=== PATIENT | female | born 1970 | race Caucasian/White ===

== ENCOUNTER 2016-11-26 12:00 | Emergency (ER) | payer OTHER ==
[~2016-11-26] VITALS: Ht 172.7 cm; Wt 67.6 kg
[~2016-11-26 12:00] MED LIST: DOCU-94 PO; ONDA8TAB6 PO; OXYC1TAB3 PO; OXYC20TA50 PO; PROC1TAB5 PO; ZNTT/150 PO
[2016-11-26 12:02] VITALS: TEMP 36.8; Ht 172.7 cm; Wt 67.6 kg
[2016-11-26] MEDS ORDERED: GABA-1218 PO (12:14)
[2016-11-26] MEDS ORDERED: OXYSR/10 PO (12:14)
[2016-11-26] MEDS ORDERED: RXC/5 PO (12:14)
[2016-11-26] MEDS ORDERED: KETOROLAC TROMETHAMINE 30 MG/ML VIAL IV STA (12:44)
[2016-11-26] MEDS ORDERED: HYDROmorphone INJ 1 MG/ML SYR IV STA ×2 (12:44→16:20)
[2016-11-26] MEDS ORDERED: METOCLOPRAMIDE HCL INJ 5 MG/ML 2 ML VIAL IV STA (12:44)
[2016-11-26] MEDS ORDERED: OPTIRAY 320 IV PRN (12:45)
[2016-11-26 12:51] LABS: HEMATOCRIT 30.9 % (37-47); MEAN CELL VOLUME 97.2 fL (80-100); MEAN CORPUSCULAR HEMOGLOBIN 32.1 pg (25-34); MEAN PLATELET VOLUME 9.7 fL (7.4-10.4); PLATELET COUNT 175 K/uL (130-400); RED BLOOD COUNT 3.18 M/uL (4.2-5.4); WHITE BLOOD COUNT 5.21 K/uL (4.8-10.8)
[2016-11-26 12:59] LABS: URINE APPEARANCE CLEAR (CLEAR); URINE COLOR DK YELLOW; URINE EPITHELIAL CELL AUTO >30 /lpf (0-5); URINE NITRITE NEG (NEG); UROBILINOGEN NEG (NEG)
[2016-11-26 13:01] LABS: MANUAL MICROSCOPIC REQUIRED? NO; REVIEW REQ? NO; URINE BILIRUBIN 1+ (NEG)
[2016-11-26 13:03] LABS: BUN/CREATININE RATIO 8.3 (10-20); CALCIUM 8.7 mg/dl (8.5-10.1); CREATININE 0.56 mg/dl (0.60-1.20); POTASSIUM 3.9 mmol/L (3.5-5.1)
--- NOTE | 2016-11-26 13:12 | EMERGENCY ROOM VISIT NOTE ---
History Report prepared by [place]: Fredy Culver Under the Supervision of: Dr. Anjel Roca M.D. First contact with patient: 12:37 Chief Complaint: ABDOMINAL PAIN Stated Complaint: ABDOMINAL PAIN Nursing Triage Summary: Pt reports abdominal pain rated 5/10. Sent by Dr. Shelby, concerned about bowel obstruction. Pt reports her last BM was this AM, administered an enema Friday night (was successful), but is still feeling pressure and pain in abdomen. History of Present Illness The patient is a 46 year old female who presents to the Emergency Room with complaints of constant abdominal pain that began the other day. She currently rates her discomfort as a 5/10 in severity. The patient states that she has a history of stage IV metastatic colon cancer that has metastasized to her liver, lungs, and bones. The patient states that she receives chemotherapy every other Friday. She reports that she typically has abdominal pain but never this severe. She notes that she has vomited on Friday and Friday and she is currently constipated. Source of History: patient Onset: The other day Position: abdomen Timing: constant Associated Symptoms: + vomiting Note: Associated symptoms: constipation Review of Systems See HPI for pertinent positives & negatives. A total of 10 systems reviewed and were otherwise negative. Past Medical & Surgical Medical Problems: (1) Colorectal cancer (2) GERD (gastroesophageal reflux disease) (3) Rectal bleed Family History Cancer Hypertension Social History Smoking Status: Never Smoker Alcohol Use: none Drug Use: none Marital Status: Housing Status: lives with family, lives with significant other Occupation Status: employed Current/Historical Medications Scheduled Gabapentin (Neurontin), 300 MG PO BID Oxycodone HCl (Oxycontin), 10 MG PO QPM Oxycodone HCl (Oxycodone HCl), 5 MG PO TID Ranitidine (Zantac), 150 MG PO BID Scheduled PRN Oxycodone Immediate Rel Tab (Roxicodone Ir), 1-2 TAB PO Q4H PRN for Severe Pain Allergies Coded Allergies: No Known Allergies (Unverified , 11/26/16) Physical Exam Vital Signs Date Time Temp Pulse Resp B/P Pulse Ox O2 Delivery O2 Flow Rate FiO2 11/26/16 16:46 83 16 115/81 96 11/26/16 16:12 76 16 121/87 97 Room Air 11/26/16 14:31 85 16 107/79 96 Room Air 11/26/16 12:58 90 18 117/81 97 Room Air 11/26/16 12:02 36.8 113 20 114/80 94 Room Air Physical Exam GENERAL: Patient is a pale-appearing cachectic female HEAD: Normocephalic atraumatic EYES: Ocular movements intact pupils equal and react to light OROPHARYNX mucous membranes are moist no exudates present no erythema or edema present NECK: Supple no nuchal rigidity CHEST: Good equal expansion LUNGS: Clear and equal to auscultation CARDIAC: Normal S1 and S2 ABDOMEN: Soft tender epigastric area no guarding BACK: No CVA tenderness EXTREMITIES: No pain upon palpation normal muscle strength in all groups no clubbing cyanosis or edema NEURO: Patient is following commands is answering questions appropriately. Alert and oriented x3 Cranial Nerves 2-12 grossly intact Medical Decision & Procedures ER Provider Diagnostic Interpretation: Radiology results as stated below per my review and radiologist interpretation: ABDOMEN AND PELVIS CT WITH IV AND ORAL CONTRAST CT DOSE: 783.63 mGy.cm HISTORY: Pain. Metastatic disease. Pt concern for REILLY TECHNIQUE: Multiaxial CT images of the abdomen and pelvis were performed following the use of intravenous and oral contrast. COMPARISON STUDY: 06/21/2016 FINDINGS: Mildly progressive basilar pulmonary nodularity. Multiple diffuse miliary type nodules are now present. Findings of diffuse hepatic mild nonobstructive small bowel ileus. Metastatic disease this is stable. Mildly progressive abdominal and pelvic ascites. Gallbladder is negative for distention. Kidneys negative for hydronephrosis. Spleen is uniform. Potential developing carcinomatosis. Bladder is midline. Mildly progressive periaortic adenopathy. No evidence for progressive bony metastatic change. IMPRESSION: 1. Progressive pulmonary metastatic nodularity. Graft 2. Stable diffuse hepatic metastatic disease. 3. Potential developing carcinomatosis with mildly progressive perinephric and retroperitoneal adenopathy. 4. Mildly progressive abdominal and pelvic ascites. 5. No evidence for bowel obstruction at the current time. Electronically signed by: Bry Aviles M.D. 11/26/2016 3:55 PM Dictated Date/Time: 11/26/2016 3:46 PM Laboratory Results 11/26/16 12:25 Red Blood Count 3.18, Mean Corpuscular Volume 97.2, Mean Corpuscular Hemoglobin 32.1, Mean Corpuscular Hemoglobin Concent 33.0, Mean Platelet Volume 9.7 11/26/16 12:25 Test 11/26/16 12:25 White Blood Count 5.21 K/uL (4.8-10.8) Red Blood Count 3.18 M/uL (4.2-5.4) Hemoglobin 10.2 g/dL (12.0-16.0) Hematocrit 30.9 % (37-47) Mean Corpuscular Volume 97.2 fL (80-100) Mean Corpuscular Hemoglobin 32.1 pg (25-34) Mean Corpuscular Hemoglobin Concent 33.0 g/dl (32-36) Platelet Count 175 K/uL (130-400) Mean Platelet Volume 9.7 fL (7.4-10.4) RDW Standard Deviation 50.3 fL (36.4-46.3) RDW Coefficient of Variation 14.2 % (11.5-14.5) Neutrophils % (Manual) 76.6 % Lymphocytes % (Manual) 9.0 % Monocytes % (Manual) 9.9 % Eosinophils % (Manual) 1.8 % Basophils % (Manual) 1.8 % Myelocytes % 0.9 % Neutrophils # (Manual) 3.99 K/uL (1.4-6.5) Total Absolute Neutrophils 3.99 K/uL (1.4-6.5) Lymphocytes # (Manual) 0.47 K/uL (1.2-3.4) Total Absolute Lymphocytes 0.47 K/uL (1.2-3.4) Monocytes # (Manual) 0.52 K/uL (0.11-0.59) Eosinophils # (Manual) 0.09 K/uL (0-0.5) Basophils # (Manual) 0.09 K/uL (0-0.2) Myelocytes # 0.05 K/uL (0-0) Red Blood Cell Morphology Unremarkable Prothrombin Time 13.8 SECONDS (9.0-12.0) Prothromb Time International Ratio 1.3 (0.9-1.1) Urine Color DK YELLOW Urine Appearance CLEAR (CLEAR) Urine pH 7.0 (4.5-7.5) Urine Specific [place] 1.010 (1.000-1.030) Urine Protein NEG (NEG) Urine Glucose (UA) NEG (NEG) Urine Ketones NEG (NEG) Urine Occult Blood NEG (NEG) Urine Nitrite NEG (NEG) Urine Bilirubin 1+ (NEG) Urine Urobilinogen NEG (NEG) Urine Leukocyte Esterase TRACE (NEG) Urine WBC (Auto) 1-5 /hpf (0-5) Urine RBC (Auto) 0-4 /hpf (0-4) Urine Hyaline Casts (Auto) 1-5 /lpf (0-5) Urine Epithelial Cells (Auto) >30 /lpf (0-5) Urine Bacteria (Auto) 1+ (NEG) Anion Gap 9.0 mmol/L (3-11) Est Creatinine Clear Calc Drug Dose 126.6 ml/min Estimated GFR () 129.6 Estimated GFR (Non- 111.8 BUN/Creatinine Ratio 8.3 (10-20) Calcium Level 8.7 mg/dl (8.5-10.1) Total Bilirubin 1.7 mg/dl (0.2-1) Direct Bilirubin 1.4 mg/dl (0-0.2) Aspartate Amino Transf (AST/SGOT) 129 U/L (15-37) Alanine Aminotransferase (ALT/SGPT) 40 U/L (12-78) Alkaline Phosphatase 511 U/L (45-117) Total Protein 5.7 gm/dl (6.4-8.2) Albumin 2.2 gm/dl (3.4-5.0) Lipase 111 U/L (73-393) Labs reviewed by ED physician. Medications Administered Medications (Trade) Dose Ordered Sig/Mary Route Start Time Stop Time Status Last Admin Dose Admin Hydromorphone HCl (Dilaudid Inj) 1 mg NOW STAT IV 11/26/16 12:44 11/26/16 12:46 DC 11/26/16 12:51 1 MG Ketorolac Tromethamine (Toradol Inj) 30 mg NOW STAT IV 11/26/16 12:44 11/26/16 12:46 DC 11/26/16 12:50 30 MG Metoclopramide HCl (Reglan Inj) 10 mg NOW STAT IV 11/26/16 12:44 11/26/16 12:46 DC 11/26/16 12:50 10 MG Hydromorphone HCl (Dilaudid Inj) 1 mg NOW STAT IV 11/26/16 16:20 11/26/16 16:21 DC 11/26/16 16:40 1 MG Heparin Sodium (Porcine) (Heparin 100 Unit/ml 5ml Flush) 5 ml STK-MED ONCE .ROUTE 11/26/16 16:37 11/26/16 16:38 DC 11/26/16 16:41 5 ML ED Course 1238: Past medical records reviewed. The patient was evaluated in room C01. A complete history and physical examination was performed. 1244: Reglan Inj 10 mg IV, Toradol Inj 30 mg, Dilaudid Inj IV 1405: I updated the patient of her exam findings and she is resting easily. 1445: I reevaluated the patient and she is doing better. 1620: Dilaudid Inj 1 mg IV 1637: Heparin Sodium (Porcine) 5 ml .ROUTE 1648: I reevaluated the patient and she is resting comfortably. I discussed the exam findings with her and I discussed the treatment plan. She verbalizes understand of the plan and is ready to go home. Medical Decision This is a 46-year-old female who presents emergency department complaining of epigastric abdominal pain. The patient was sent in by her oncologist who is requesting a CAT scan to rule out obstruction. An IV was established, the patient given normal saline bolus, Dilaudid, Toradol, Reglan repeat examination revealed improvement the patient's symptoms. Serial abdominal examinations were performed on the patient in the emergency department and at no time did the patient exhibit a surgical abdomen. I did discuss the CAT scan results with the patient's oncologist. I gave the patient the option of being admitted however she wishes to go home. I believe this is reasonable however I recommended a clear liquid diet for the next 48 hours I recommended she return if she develops severe abdominal pain or fevers. Patient and were in agreement with the treatment plan. Consults Time Called: 1601 Consulting Physician: Dr. Shelby, Oncology Returned Call: 1606 I discussed the patients CT scan with Dr Shelby, Oncology. He states that the patient may be discharged or evaluated for further treatment, depending on how she feels. Impression Primary Impression: Epigastric abdominal pain Scribe Attestation The scribe's documentation has been prepared under my direction and personally reviewed by me in its entirety. I confirm that the note above accurately reflects all work, treatment, procedures, and medical decision making performed by me. Departure Information Dispostion Home / Self-Care Prescriptions Oxycodone Immediate Rel Tab (ROXICODONE IR) 5 Mg Tab 1-2 TAB PO Q4H Y for Severe Pain, #24 TAB Prov: Anjel Roca MD 11/26/16 Referrals Lynette Nicole C.R.NJongPJong (PCP) Forms Call Back Authorization, HOME CARE DOCUMENTATION FORM, IMPORTANT VISIT INFORMATION, School Instructions, Work Instructions Patient Instructions ED Abd Pain Unkn Cause Fem, ED Diet Clear Liquid, [facility] Additional Instructions Clear liquid diet next 48 hours You received narcotic or benzodiazepene medication while in the emergency room today. Do not drive, operate heavy machinery, or drink alcohol under the influence of this medication. Take Oxy 1-2 q4 for breakthrough pain You have been examined and treated today on an emergency basis only. This is not a substitute for, or an effort to provide, complete comprehensive medical care. It is impossible to recognize and treat all injuries or illnesses in a single emergency department visit. It is therefore important that you follow up closely with your PCP. Call as soon as possible for an appointment. Thank you for your time and consideration. I look forward to speaking with you again soon. Please don't hesitate to call us if you have any questions.
[2016-11-26 13:20] LABS: BASO ABS # 0.09 K/uL (0-0.2); BASOPHIL % 1.8 %; COMPLETE YES; EOSINOPHIL % 1.8 %; LYMPH ABS # 0.47 K/uL (1.2-3.4); MYELOCYTE % 0.9 %; NEUTROPHILS % 76.6 %
[2016-11-26 13:30] LABS: INR 1.3 (0.9-1.1); PROTHROMBIN TIME (PATIENT) 13.8 SECONDS (9.0-12.0)
--- NOTE | 2016-11-26 15:56 | DIAGNOSTIC IMAGING REPORT ---
ABDOMEN AND PELVIS CT WITH IV AND ORAL CONTRAST CT DOSE: 783.63 mGy.cm HISTORY: Pain. Metastatic disease. Pt concern for REILLY TECHNIQUE: Multiaxial CT images of the abdomen and pelvis were performed following the use of intravenous and oral contrast. COMPARISON STUDY: 06/21/2016 FINDINGS: Mildly progressive basilar pulmonary nodularity. Multiple diffuse miliary type nodules are now present. Findings of diffuse hepatic mild nonobstructive small bowel ileus. Metastatic disease this is stable. Mildly progressive abdominal and pelvic ascites. Gallbladder is negative for distention. Kidneys negative for hydronephrosis. Spleen is uniform. Potential developing carcinomatosis. Bladder is midline. Mildly progressive periaortic adenopathy. No evidence for progressive bony metastatic change. IMPRESSION: 1. Progressive pulmonary metastatic nodularity. Graft 2. Stable diffuse hepatic metastatic disease. 3. Potential developing carcinomatosis with mildly progressive perinephric and retroperitoneal adenopathy. 4. Mildly progressive abdominal and pelvic ascites. 5. No evidence for bowel obstruction at the current time. Electronically signed by: Bry Aviles M.D. 11/26/2016 3:55 PM Dictated Date/Time: 11/26/2016 3:46 PM
[2016-11-26] MEDS ORDERED: OXYC1TAB3 PO (16:21)
[2016-11-26 16:46] VITALS: BP 115/81; PULSE 83; O2SAT 96
[2016-12-18] MEDS ORDERED: POLY335025 PO (13:26)
[2016-12-18] MEDS ORDERED: DOCU-94 PO (13:26)
[2017-01-11] MEDS ORDERED: SCOP1.5D2 TD (23:16)
== END 2016-11-26 16:48 | disposition home or self-care (01) ==
LOC: C.EDB 12:01 → C.EDC 16:48
DX: R10.13 Epigastric pain (principal); C18.9 Malignant neoplasm of colon, unspecified; C78.7 Secondary malignant neoplasm of liver and intrahepatic bile duct; C78.00 Secondary malignant neoplasm of unspecified lung; C79.51 Secondary malignant neoplasm of bone; R11.10 Vomiting, unspecified; K59.00 Constipation, unspecified

== ENCOUNTER → 2016-12-18 | Outpatient (CLI) | payer OTHER ==
[~2016-12-18] MED LIST changes: +GABA-1218 PO; +ONDA8TAB13 SL; -ONDA8TAB6 PO; +OXYC1CAP5 PO; -OXYC20TA50 PO; +OXYSR/10 PO; +PANT40TA PO; +POLY335025 PO; +RXC/5 PO; +SCOP1.5D2 TD; +VTMD1000 PO
[2016-12-18 13:08] VITALS: BP 114/84; PULSE 101; TEMP 36.8; O2SAT 92
--- NOTE | 2016-12-18 17:39 | Radiation Oncology Follow-Up ---
Radiation Oncology Follow-Up Date of Visit December 18, 2016. (Robyn Sosa PA-C) Reason For Visit One-month follow-up (Robyn Sosa PA-C) Radiation Completion Date finished 05-24-16 left femur and to right femur 10-18-2016 (Robyn Sosa PA-C) Diagnosis (1) Colorectal cancer Status: Chronic Onset Date: 04/23/2016 Location: metastasis to the right proximal femur Stage: IV Permanent Comment: STAGING: Colorectal, adeconcarcinoma, metastatic disease to liver and bone TREATMENT: 1. Systemic chemotherapy underneath the supervision of Dr. Emiliano Shelby. 2. Status post completion of radiation therapy 05/24/2016 received 3000 cGy to the left femur 3. Continued systemic chemotherapy Last Edited By: Robyn Sosa on Sep 17:37 (Robyn Sosa PA-C) History of Present Illness Ms. Tatum is a 46-year-old female who recently presented to her primary care physician with blood in her stool. Initially was thought to be hemorrhoids in her bleeding resolved. Subsequently, 1 month ago, the patient then presented with epigastric pain and then her primary care physician ordered a abdominal ultrasound on 04/15/2016 which revealed: IMPRESSION 1. Findings consistent with diffuse hepatic metastatic disease. Consideration could be made to an abdominal /pelvic CT scan for further assessment and for potential identification of the primary tumor. 2. A presumed cholesterol polyp is identified in the gallbladder. She subsequently had a CT of the abdomen and pelvis on 04/17/2016 which revealed innumerable hypodense liver lesions suspicious for metastasis. She had a bilateral mammograms completed on 04/19/2016 which revealed no evidence of breast disease. She had a CT thorax completed on 04/19/2016 which showed multiple bilateral lower lobe pulmonary nodules consistent with metastasis and no primary malignancy is identified. She did have a CT-guided needle biopsy completed on 04/23/2016 which showed metastatic adenocarcinoma compatible with colon adenocarcinoma. She then had a PET/CT scan completed on 04/26/2016: IMPRESSION 1. Metabolically active focal thickening of the descending colon, highly suspicious for malignancy. Correlation with colonoscopy is recommended. 2. Metabolically active diffuse hepatic metastatic disease. 3. Metabolically active osseous metastatic disease involving the left scapula and proximal femurs. 4. Bilateral lower lobe pulmonary nodules without significant metabolic activity. Findings remain suspicious for metastatic disease. 5. Hyperdensity in the presacral/pericolonic region without increased metabolic activity, may represent blood product. She was subsequently referred to Dr. Emiliano Shelby for medical oncology. Dr. Shelby recommended systemic chemotherapy and has started the patient on oxaliplatin. We are seeing the patient in consultation to discuss the role of prophylactic radiation therapy to the left femur to prevent a pathologic fracture. Status post completion of radiation therapy 05/24/2016 received 3000 cGy. She completed radiation to the left femur for stabilization. Treatment was given to prevent pending fracture. She tolerated the treatment well. She unfortunately has now developed pain in her right femur. Pain does radiate towards the hip and down towards her knee. The pain level currently is 1 but increases with movement. She takes ibuprofen for pain. She has continued on chemotherapy. She receives 5-FU every 2 weeks. She is also receiving Xgeva. She does have a side effect of neuropathy of the fingers and toes. She had a PET scan 09/11/2016. This showed new left scapular metastatic lesion and increasing uptake in the right proximal femur lesion consistent with disease progression. Postradiation changes in the left proximal femur. Innumerable hepatic metastasis, some of which appear to have central necrosis. Lesions appear larger and more complete fluid on CT increased uptake within the primary lesion in the descending colon. Due to the pain in the finding on the PET scan she also had plain film x-rays of the femur. Those were performed on 2016. There was no radiologic correlate for the FDG uptake on the comparison PET/CT scans. She was referred to our office discuss radiation therapy. She completed radiation therapy to the right femur on 10/18/2016. She received 2500 cGy. (Robyn Sosa PA-C) Interim History She did develop an area of skin discoloration on the posterior upper right thigh. There was no breakdown of the skin. There is little difficulty currently with the hip. Her main source of discomfort now is in her abdomen. She has developed ascites. She had a paracentesis 12/11/2016. 3 L of fluid were removed. This revealed red blood cells, lymphocytes, and a few degenerate mesothelial cells. No tumor cells were seen specimen [id number]. The pain continues in her abdomen and is a 7.5. She has multiple pain medications available to her. She has OxyContin 10 mg twice a day. She has oxycodone 5 mg which she is taking 3 times a day. She can also take this twice daily. She has Roxicodone been which she can take 1 or 2 every 4 hours as needed. There was discussion over ankle swelling. We discussed this may be related to decreased protein. She has been eating and drinking little area she was encouraged to use supplements. She has been receiving chemotherapy every 2 weeks. Her last dose of treatment was not given last week due to elevated liver function studies. She has a recheck appointment for laboratory studies this week to see if she qualifies. (Robyn Sosa PA-C) Allergies Coded Allergies: No Known Allergies (Unverified , 12/11/16) Home Medications Scheduled Docusate Sodium (Colace), 1 CAP PO BID Gabapentin (Neurontin), 300 MG PO BID Oxycodone HCl (Oxycontin), 10 MG PO BID Ranitidine (Zantac), 150 MG PO BID Scheduled PRN Oxycodone HCl (Oxycodone HCl), 5 MG PO TID PRN for Pain Oxycodone Immediate Rel Tab (Roxicodone Ir), 1-2 TAB PO Q4H PRN for Severe Pain Polyethylene Glycol 3350 (Miralax), 1 TSP PO QD PRN for Constipation Review of Systems Gastrointestinal: Symptoms: Nausea, Vomiting, Constipation, Abdominal Distention Oral: Symptoms: Scant Saliva/Dry Mouth Respiratory: Symptoms: Dry Cough, SOB With Exertion Urinary: Comments: "hard to pee, due to rectocele " Skin: Other Skin Symptoms: "right leg has a bruise on it " (Robyn Sosa PA-C) Physical Exam Vital Signs Date Time Temp Pulse Resp B/P Pulse Ox O2 Delivery O2 Flow Rate FiO2 12/18/16 13:08 36.8 101 20 114/84 92 Pain: Pain Onset: 1 week Pain Duration: comes and goes Side: Right Patient Pain Scale: 0 - 10 Initial Pain Intensity: 7.5 Pain Description: Sharp Additional Comments: gets worse at times General Appearance: + thin, + pertinent finding Eyes: normal inspection, EOMI ENT: hearing grossly normal Respiratory/Chest: lungs clear, no respiratory distress, no accessory muscle use Cardiovascular: regular rate, rhythm, no gallop, no murmur Abdomen: + distended, + pertinent finding (firm and tender in the right upper quadrant) Extremities: + pertinent finding (+1 ankle edema, she has an area of hyperpigmentation of the right posterior upper thigh. There is no wet or dry desquamation.) Neurologic/Psychiatric: no motor/sensory deficits, alert, normal mood/affect Skin: warm/dry (Robyn Sosa PA-C) Laboratory Studies Test 11/26/16 12:25 12/11/16 00:00 White Blood Count 5.21 K/uL (4.8-10.8) Red Blood Count 3.18 M/uL (4.2-5.4) Hemoglobin 10.2 g/dL (12.0-16.0) Hematocrit 30.9 % (37-47) Mean Corpuscular Volume 97.2 fL (80-100) Mean Corpuscular Hemoglobin 32.1 pg (25-34) Mean Corpuscular Hemoglobin Concent 33.0 g/dl (32-36) Platelet Count 175 K/uL (130-400) Mean Platelet Volume 9.7 fL (7.4-10.4) RDW Standard Deviation 50.3 fL (36.4-46.3) RDW Coefficient of Variation 14.2 % (11.5-14.5) Neutrophils % (Manual) 76.6 % Lymphocytes % (Manual) 9.0 % Monocytes % (Manual) 9.9 % Eosinophils % (Manual) 1.8 % Basophils % (Manual) 1.8 % Myelocytes % 0.9 % Neutrophils # (Manual) 3.99 K/uL (1.4-6.5) Total Absolute Neutrophils 3.99 K/uL (1.4-6.5) Lymphocytes # (Manual) 0.47 K/uL (1.2-3.4) Total Absolute Lymphocytes 0.47 K/uL (1.2-3.4) Monocytes # (Manual) 0.52 K/uL (0.11-0.59) Eosinophils # (Manual) 0.09 K/uL (0-0.5) Basophils # (Manual) 0.09 K/uL (0-0.2) Myelocytes # 0.05 K/uL (0-0) Red Blood Cell Morphology Unremarkable Prothrombin Time 13.8 SECONDS (9.0-12.0) Prothrombin Time INR 1.3 (0.9-1.1) Urine Color DK YELLOW Urine Appearance CLEAR (CLEAR) Urine pH 7.0 (4.5-7.5) Urine Specific [place] 1.010 (1.000-1.030) Urine Protein NEG (NEG) Urine Glucose (UA) NEG (NEG) Urine Ketones NEG (NEG) Urine Occult Blood NEG (NEG) Urine Nitrite NEG (NEG) Urine Bilirubin 1+ (NEG) Urine Urobilinogen NEG (NEG) Urine Leukocyte Esterase TRACE (NEG) Urine WBC (Auto) 1-5 /hpf (0-5) Urine RBC (Auto) 0-4 /hpf (0-4) Urine Hyaline Casts (Auto) 1-5 /lpf (0-5) Urine Epithelial Cells (Auto) >30 /lpf (0-5) Urine Bacteria (Auto) 1+ (NEG) Sodium Level 138 mmol/L (136-145) Potassium Level 3.9 mmol/L (3.5-5.1) Chloride Level 105 mmol/L (98-107) Carbon Dioxide Level 24 mmol/L (21-32) Anion Gap 9.0 mmol/L (3-11) Blood Urea Nitrogen 5 mg/dl (7-18) Creatinine 0.56 mg/dl (0.60-1.20) Est Creatinine Clear Calc Drug Dose 126.6 ml/min Estimated GFR () 129.6 Estimated GFR (Non- 111.8 BUN/Creatinine Ratio 8.3 (10-20) Random Glucose 106 mg/dl (70-99) Calcium Level 8.7 mg/dl (8.5-10.1) Total Bilirubin 1.7 mg/dl (0.2-1) Direct Bilirubin 1.4 mg/dl (0-0.2) Aspartate Amino Transferase (AST) 129 U/L (15-37) Alanine Aminotransferase (ALT) 40 U/L (12-78) Alkaline Phosphatase 511 U/L (45-117) Total Protein 5.7 gm/dl (6.4-8.2) Albumin 2.2 gm/dl (3.4-5.0) Lipase 111 U/L (73-393) Peritoneal Fluid Color YELLOW Peritoneal Fluid Appearance CLEAR Peritoneal Fluid WBC 26 /uL (0-300) Peritoneal Fluid RBC < 3000 /uL Peritoneal Fld Mononuclear WBCs (%) 57.9 % Peritoneal Fld Polynuclear WBCs (%) 42.1 % (Robyn Sosa PA-C) Assessment & Plan Plan: Patient is also seen and examined by Dr. Shelby. She is being followed closely by medical oncology. She has unfortunately now developed abdominal ascites. She may need to have paracentesis once again. She'll be seeing the physician and having laboratory studies this week. A follow-up appointment with our office was not given. She recall she has any questions or concerns. (Robyn Sosa PA-C) I agree with note created by Robyn Sosa PA-C. I reviewed the patient's chart and information with her. I have examined and evaluated the patient. I reviewed relevant clinical information and answered the patient's and/or family' s questions. (Veeral. Shelby MD) Total Time In Follow-Up I spent 15 minutes speaking to the patient performing the examination. I spent 15 minutes reviewing information in completing this note. (Robyn Sosa PA-C) I spent 15 minutes examining and counseling the patient. (Veeral. Shelby MD) Copy To Lynette Nicole,C.R.N.P.; Emiliano Shelby M.D.
== END | disposition home or self-care (01) ==
LOC: C.ONC 13:02
PROVIDERS: ATTEND Physician Assistant Medical
DX: Z08 Encounter for follow-up examination after completed treatment for malignant neoplasm (principal); Z92.3 Personal history of irradiation; Z85.038 Personal history of other malignant neoplasm of large intestine; Z85.048 Personal history of other malignant neoplasm of rectum, rectosigmoid junction, and anus

== ENCOUNTER 2017-01-11 16:41 | Inpatient (IN) | payer OTHER ==
[~2017-01-11] VITALS: Ht 172.7 cm; Wt 67.7 kg
[~2017-01-11 16:41] MED LIST changes: -GABA-1218 PO; +GABA300C19 PO; -ONDA8TAB13 SL; -OXYC1CAP5 PO; -PANT40TA PO; -PROC1TAB5 PO; -RXC/5 PO; -SCOP1.5D2 TD; -VTMD1000 PO
[2017-01-11] MEDS ORDERED: FENTANYL CITRATE INJ 50 MCG/1 ML 2 ML VIAL IV STA ×3 (17:06→23:21)
[2017-01-11 17:23] LABS: HEMATOCRIT 40.9 % (37-47); MEAN CELL VOLUME 91.3 fL (80-100); MEAN CORPUSCULAR HEMOGLOBIN 32.1 pg (25-34); MEAN CORPUSCULAR HGB CONC 35.2 g/dl (32-36); MEAN PLATELET VOLUME 9.7 fL (7.4-10.4); PLATELET COUNT 265 K/uL (130-400); RED BLOOD COUNT 4.48 M/uL (4.2-5.4); WHITE BLOOD COUNT 23.59 K/uL (4.8-10.8)
[2017-01-11 17:42] LABS: BUN/CREATININE RATIO 20.9 (10-20); CREATININE 1.2 mg/dl (0.60-1.20); POTASSIUM 4.9 mmol/L (3.5-5.1)
[2017-01-11 17:44] LABS: INR 1.3 (0.9-1.1)
[2017-01-11 17:47] LABS: BASO % 0.1 %; BASO ABS # 0.03 K/uL (0-0.2); COMPLETE YES; EOS % 0.4 %; IG% 1.5 %; LYMPH % 6.3 %; LYMPH ABS # 1.48 K/uL (1.2-3.4); MONO % 10.4 %; NEUT % 81.3 %
[2017-01-11] MEDS ORDERED: OXYC1CAP5 PO (17:56)
[2017-01-11 17:57] LABS: ALB/GLOB RATIO 0.3 (0.9-2)
--- NOTE | 2017-01-11 18:15 | DIAGNOSTIC IMAGING REPORT ---
ADDENDUM ADDENDUM: The pulmonary abnormality corresponds to diffuse/multifocal pulmonary metastatic disease. There is no radiographic evidence of superimposed airspace consolidation to indicate pneumonia. This was further characterized on the subsequently performed abdominal CT scan. Electronically signed by: Shin Roberts M.D. 01/11/2017 7:36 PM Dictated Date/Time: 01/11/2017 7:35 PM ORIGINAL REPORT SINGLE VIEW CHEST CLINICAL HISTORY: Leukocytosis. Weakness. FINDINGS: An AP, portable, upright chest radiograph is compared to study dated 09/06/2014 and correlated with chest CT dated 08/30/14. The examination is degraded by portable technique and patient rotation. A left subclavian central venous infusion port is new from 2014. The cardiomediastinal silhouette is unremarkable. There are low lung volumes. Patchy airspace consolidation and nodularity is seen in the mid to lower lungs. Trace pleural effusions are suspected. No pneumothorax is seen. The skeletal structures are osteopenic. The bony thorax is grossly intact. A paucity of bowel gas is noted in the upper abdomen. IMPRESSION: 1. Low lung volumes with bibasilar atelectasis. 2. There is patchy airspace consolidation and nodularity identified in the lower lobes. This likely represents an infectious/inflammatory pneumonitis given the reported history of leukocytosis. Superimposed congestive change is not excluded. Radiographic follow-up to resolution is recommended. 3. Suspect trace pleural effusions. Electronically signed by: Shin Roberts M.D. 01/11/2017 6:13 PM Dictated Date/Time: 01/11/2017 6:11 PM
[2017-01-11] MEDS ORDERED: SODIUM CHLORIDE 0.9% 1000ML 1,000 ML IV STA (18:17)
[2017-01-11] MEDS ORDERED: CEFEPIME IV 2,000 MG in DEXTROSE 5% 100ML 100 ML IV STA (18:44)
[2017-01-11] MEDS ORDERED: VANCOMYCIN INJ 1,000 MG in SODIUM CHLORIDE 0.9% 250ML 250 ML IV STA (18:44)
[2017-01-11] MEDS ORDERED: VANCOMYCIN 1GM/270ML NSS ONE (18:56)
--- NOTE | 2017-01-11 19:23 | DIAGNOSTIC IMAGING REPORT ---
CT SCAN OF THE ABDOMEN AND PELVIS WITHOUT IV CONTRAST CLINICAL HISTORY: Generalized abdominal pain. Leukocytosis. History of metastatic colon cancer. COMPARISON STUDY: Abdominal CT dated 11/26/2016. TECHNIQUE: CT scan of the abdomen and pelvis is performed from the lung bases to the proximal femora. Images are reviewed in the axial, sagittal, and coronal planes. IV contrast was not administered for this examination as per the referring clinician. Note that the examination was performed in significantly suboptimal fashion without oral and IV contrast. Automated dose control exposure was utilized. CT DOSE: 853.46 mGy.cm FINDINGS: Lung bases: The heart is normal in size and without pericardial effusion. The tip of a central venous infusion port catheter terminates in the right atrium. There are too numerous to count pulmonary nodules seen throughout both lung bases. This is consistent with diffuse pulmonary metastatic disease. The nodules have significantly increased in both size and number as compared to 11/26/2016. No airspace consolidation or pleural effusion is identified. Liver: The unenhanced liver is enlarged measuring 25 cm in length. There is nodularity of the hepatic surface contour. The liver is infiltrated by too numerous to count large low-attenuation lesions. This is consistent with multifocal hepatic metastatic disease. Although direct comparison is difficult due to differences in technique, this is likely progressed from 11/26/2016. There is no intrahepatic biliary ductal dilatation. Gallbladder: Hyperdense material within the gallbladder lumen may represent sludge. Spleen: The spleen is mildly enlarged measuring 13.5 cm in length. Pancreas: Grossly unremarkable but not well visualized. Adrenal glands: Unremarkable. Kidneys: The unenhanced kidneys demonstrate mild cortical atrophy and are without hydronephrosis. There are no renal calculi identified. There is no evidence of contour deforming renal mass lesion. Abdominal vasculature: The abdominal aorta is normal in course and caliber. Bowel: There is no bowel obstruction. There is mild colonic fecal retention. Wall thickening is suggested in the right colon. This is not well assessed. The appendix is normal as visualized. Peritoneum: There is a moderate to large volume of abdominopelvic ascites. No intraperitoneal free air is seen. Carcinomatosis is again suggested. Lymphadenopathy: Adenopathy seen previously is not well assessed.. Pelvic viscera: The bladder, uterus, and adnexa are normal as visualized. Skeletal structures: The skeletal structures are osteopenic. No lytic or blastic lesions are seen. Soft tissues: The patient is cachectic. Anasarca is noted. IMPRESSION: 1. Significant suboptimal examination without oral and IV contrast. 2. Findings are consistent with diffuse pulmonary metastatic disease. Pulmonary metastatic disease has significantly progressed as compared to 11/26/2016. No airspace consolidation is seen at the lung bases. 3. The liver is enlarged and infiltrated by too numerous to count metastatic lesions. This has also likely progressed from 11/26/2016. 4. The patient is cachectic and there is anasarca of the body wall. 5. Moderate to large volume of abdominopelvic ascites. Carcinomatosis is again suggested. 6. There is wall thickening questioned involving the right colon. This is not well evaluated. Correlate clinically for evidence of a diarrheal illness/colitis. This could also be related to portal colopathy. 7. Mild splenomegaly. 8. Additional findings as above. Electronically signed by: Shin Roberts M.D. 01/11/2017 7:22 PM Dictated Date/Time: 01/11/2017 7:11 PM
[2017-01-11] MEDS: LEVAQUIN 750MG / 150ML D5W IV ONE ×2 (19:43→20:14)
--- NOTE | 2017-01-11 21:04 | EMERGENCY ROOM VISIT NOTE ---
History Report prepared by [place]: Sagrario Javed Under the Supervision of: Dr. Michelle Nicole D.O. First contact with patient: 16:44 Stated Complaint: WEAKNESS/DEHYDRATION/ CANCER STAGE 4 History of Present Illness The patient is a 46 year old female who presents to the Emergency Room with complaints of persistent weakness starting earlier today. The patient has stage 4 cancer. She is not receiving chemo or radiation. She presents to the ED today because she has been feeling weak. She is having difficulty ambulating because of her weakness. Her believes that she might be dehydrated. She notes that she has not been eating or drinking regularly. Her appetite is worsening. She gets fluid drained from her abdomen weekly. She currently reports abdominal discomfort. They remove 4-5 liters of fluid each week after which the discomfort is relieved. She denies any fever, chills, or bleeding. Her bowel movements have been smaller than usual. She has recently started using a motion sickness patch because of nausea and vomiting during car trips. She denies any nausea or vomiting otherwise. She denies any other medication changes. Source of History: patient, spouse/significant other Onset: earlier today Position: other (global) Quality: other (weakness) Timing: other (persistent) Associated Symptoms: + abdominal pain, No fevers, No chills, No vomiting Note: Pt reports decreased appetite. Pt denies bleeding. Review of Systems See HPI for pertinent positives & negatives. A total of 10 systems reviewed and were otherwise negative. Past Medical & Surgical Medical Problems: (1) Ascites (2) Colorectal cancer (3) GERD (gastroesophageal reflux disease) (4) Rectal bleed Family History Cancer Hypertension Social History Smoking Status: Never Smoker Alcohol Use: none Drug Use: none Marital Status: Housing Status: lives with family, lives with significant other Current/Historical Medications Scheduled Cholecalciferol (Vitamin D3), 5,000 PO DAILY Docusate Sodium (Colace), 1 CAP PO BID Gabapentin (Neurontin), 300 MG PO TID Oxycodone HCl (Oxycontin), 10 MG PO BID Pantoprazole (Protonix), 40 MG PO DAILY Ranitidine (Zantac), 150 MG PO BID Scopolamine (Transderm-Scop), 1.5 MG TD Q72H Scheduled PRN Ondansetron Odt (Zofran Odt), 8 MG SL Q8WK PRN for Nausea or Vomiting Oxycodone Hcl (Oxycodone Hcl), 1 CAP PO QID PRN for Pain Polyethylene Glycol 3350 (Miralax), 1 TSP PO QD PRN for Constipation Prochlorperazine Maleate (Compazine), 10 MG PO Q6H PRN for Nausea Allergies Coded Allergies: No Known Allergies (Unverified , 01/11/17) Physical Exam Vital Signs Date Time Temp Pulse Resp B/P (MAP) Pulse Ox O2 Delivery O2 Flow Rate FiO2 01/11/17 22:00 102 24 105/74 93 Room Air 01/11/17 21:37 105 24 108/77 95 Room Air 01/11/17 20:59 102 01/11/17 20:14 104 20 109/71 95 01/11/17 19:31 101 16 106/73 98 Room Air 01/11/17 18:44 102 13 107/65 92 Room Air 01/11/17 17:48 112 18 101/82 94 Room Air 01/11/17 17:13 36.3 100 16 113/69 96 Room Air 01/11/17 17:04 101 Physical Exam GENERAL: pale, cachectic EYE EXAM: obvious scleral icterus, PERRLA, EOMI OROPHARYNX: no exudate, no erythema, lips, buccal mucosa, and tongue normal and mucous membranes are very dry NECK: supple, no nuchal rigidity, no adenopathy, non-tender LUNGS: Breath sounds clear bilaterally, no wheezes, rales, or rhonchi. HEART: tachycardic, but regular, no m/r/g ABDOMEN: abdomen is distended, no organomegaly, normo-active bowel sounds BACK: Back is symmetrical on inspection and there is no deformity, no midline tenderness, no CVA tenderness. SKIN: no rashes and no bruising UPPER EXTREMITIES: upper extremities are grossly normal. LOWER EXTREMITIES: No pitting edema. NEURO EXAM: Normal sensorium, cranial nerves II-XII grossly intact, normal speech, no gross weakness of arms, no gross weakness of legs. Medical Decision & Procedures ER Provider Diagnostic Interpretation: Xray results have been interpreted by the radiologist and me. Radiology results have been interpreted by the radiologist and reviewed by me. ADDENDUM ADDENDUM: The pulmonary abnormality corresponds to diffuse/multifocal pulmonary metastatic disease. There is no radiographic evidence of superimposed airspace consolidation to indicate pneumonia. This was further characterized on the subsequently performed abdominal CT scan. Electronically signed by: Shin Roberts M.D. 01/11/2017 7:36 PM Dictated Date/Time: 01/11/2017 7:35 PM ORIGINAL REPORT SINGLE VIEW CHEST CLINICAL HISTORY: Leukocytosis. Weakness. FINDINGS: An AP, portable, upright chest radiograph is compared to study dated 09/06/2014 and correlated with chest CT dated 08/30/14. The examination is degraded by portable technique and patient rotation. A left subclavian central venous infusion port is new from 2014. The cardiomediastinal silhouette is unremarkable. There are low lung volumes. Patchy airspace consolidation and nodularity is seen in the mid to lower lungs. Trace pleural effusions are suspected. No pneumothorax is seen. The skeletal structures are osteopenic. The bony thorax is grossly intact. A paucity of bowel gas is noted in the upper abdomen. IMPRESSION: 1. Low lung volumes with bibasilar atelectasis. 2. There is patchy airspace consolidation and nodularity identified in the lower lobes. This likely represents an infectious/inflammatory pneumonitis given the reported history of leukocytosis. Superimposed congestive change is not excluded. Radiographic follow-up to resolution is recommended. 3. Suspect trace pleural effusions. Electronically signed by: Shin Roberts M.D. 01/11/2017 6:13 PM Dictated Date/Time: 01/11/2017 6:[address] SCAN OF THE ABDOMEN AND PELVIS WITHOUT IV CONTRAST CLINICAL HISTORY: Generalized abdominal pain. Leukocytosis. History of metastatic colon cancer. COMPARISON STUDY: Abdominal CT dated 11/26/2016. TECHNIQUE: CT scan of the abdomen and pelvis is performed from the lung bases to the proximal femora. Images are reviewed in the axial, sagittal, and coronal planes. IV contrast was not administered for this examination as per the referring clinician. Note that the examination was performed in significantly suboptimal fashion without oral and IV contrast. Automated dose control exposure was utilized. CT DOSE: 853.46 mGy.cm FINDINGS: Lung bases: The heart is normal in size and without pericardial effusion. The tip of a central venous infusion port catheter terminates in the right atrium. There are too numerous to count pulmonary nodules seen throughout both lung bases. This is consistent with diffuse pulmonary metastatic disease. The nodules have significantly increased in both size and number as compared to 11/26/2016. No airspace consolidation or pleural effusion is identified. Liver: The unenhanced liver is enlarged measuring 25 cm in length. There is nodularity of the hepatic surface contour. The liver is infiltrated by too numerous to count large low-attenuation lesions. This is consistent with multifocal hepatic metastatic disease. Although direct comparison is difficult due to differences in technique, this is likely progressed from 11/26/2016. There is no intrahepatic biliary ductal dilatation. Gallbladder: Hyperdense material within the gallbladder lumen may represent sludge. Spleen: The spleen is mildly enlarged measuring 13.5 cm in length. Pancreas: Grossly unremarkable but not well visualized. Adrenal glands: Unremarkable. Kidneys: The unenhanced kidneys demonstrate mild cortical atrophy and are without hydronephrosis. There are no renal calculi identified. There is no evidence of contour deforming renal mass lesion. Abdominal vasculature: The abdominal aorta is normal in course and caliber. Bowel: There is no bowel obstruction. There is mild colonic fecal retention. Wall thickening is suggested in the right colon. This is not well assessed. The appendix is normal as visualized. Peritoneum: There is a moderate to large volume of abdominopelvic ascites. No intraperitoneal free air is seen. Carcinomatosis is again suggested. Lymphadenopathy: Adenopathy seen previously is not well assessed.. Pelvic viscera: The bladder, uterus, and adnexa are normal as visualized. Skeletal structures: The skeletal structures are osteopenic. No lytic or blastic lesions are seen. Soft tissues: The patient is cachectic. Anasarca is noted. IMPRESSION: 1. Significant suboptimal examination without oral and IV contrast. 2. Findings are consistent with diffuse pulmonary metastatic disease. Pulmonary metastatic disease has significantly progressed as compared to 11/26/2016. No airspace consolidation is seen at the lung bases. 3. The liver is enlarged and infiltrated by too numerous to count metastatic lesions. This has also likely progressed from 11/26/2016. 4. The patient is cachectic and there is anasarca of the body wall. 5. Moderate to large volume of abdominopelvic ascites. Carcinomatosis is again suggested. 6. There is wall thickening questioned involving the right colon. This is not well evaluated. Correlate clinically for evidence of a diarrheal illness/colitis. This could also be related to portal colopathy. 7. Mild splenomegaly. 8. Additional findings as above. Electronically signed by: Shin Roberts M.D. 01/11/2017 7:22 PM Dictated Date/Time: 01/11/2017 7:11 PM Laboratory Results Test 01/11/17 17:20 01/11/17 23:10 Ammonia 15.0 umol/L (11-32) Peritoneal Fluid Color YELLOW Peritoneal Fluid Appearance CLEAR Peritoneal Fluid WBC 138 /uL (0-300) Peritoneal Fluid RBC < 3000 /uL Peritoneal Fld Mononuclear WBCs (%) 47.6 % Peritoneal Fld Polynuclear WBCs (%) 52.4 % Peritoneal Fluid Total Protein 0.8 g/dl Peritoneal Fluid Albumin < 0.6 g/dl Peritoneal Fluid LDH 340 IU Peritoneal Fluid Glucose 90 mg/dl Laboratory results per my review. Medications Administered Medications (Trade) Dose Ordered Sig/Mary Route Start Time Stop Time Status Last Admin Dose Admin Fentanyl Citrate (Fentanyl Inj) 50 mcg NOW STAT IV 01/11/17 17:06 01/11/17 17:09 DC 01/11/17 17:27 50 MCG Sodium Chloride 1,000 ml @ 250 mls/hr Q4H STAT IV 01/11/17 18:17 01/11/17 22:16 DC 01/11/17 19:32 250 MLS/HR Vancomycin HCl 1000 mg/Sodium Chloride 270 ml @ 125 mls/hr NOW STAT IV 01/11/17 18:44 01/11/17 20:53 DC 01/11/17 19:33 125 MLS/HR Levofloxacin (Levaquin / D5W) 750 mg NOW ONCE IV 01/11/17 18:45 01/11/17 18:47 DC 01/11/17 20:14 750 MG Cefepime HCl 2000 mg/Dextrose 112.5 ml @ 200 mls/hr NOW STAT IV 01/11/17 18:44 01/11/17 19:17 DC 01/11/17 19:33 200 MLS/HR Fentanyl Citrate (Fentanyl Inj) 50 mcg NOW STAT IV 01/11/17 19:57 01/11/17 19:58 DC 01/11/17 20:21 50 MCG Tetracaine/ Epinephrine/ Lidocaine (L.e.t. Gel 4%/ 1:100/0.5%) 2 ea STK-MED ONCE .ROUTE 01/11/17 22:17 01/11/17 22:18 DC 01/11/17 22:29 2 EA Procedure Paracentesis performed Right Lower Quadrant 10 cc of fluid removed ED Course 164: The patient was evaluated in room A12B. A complete history and physical exam was performed. 1705: Fentanyl Citrate 50 mcg IV. 1816: NSS 1000 ml @ 250 mls/hr IV. 184: Cefepime HCl 2000 mg/Dextrose 112.5 ml @ 200 mls/hr IV, Vancomycin HCl 1000 mg/Sodium Chloride 270 ml @ 125 mls/hr IV. 184: Levofloxacin 750 mg IV. 1940: Upon reevaluation, the patient is still complaining of abdominal discomfort consistent with need for paracentesis. I discussed the findings and the treatment plan with the patient and her family. They express agreement and understanding. She will be evaluated for further management. 1956: Fentanyl Citrate 50 mcg IV. 2049: I discussed the patient's case with Dr. Gomez, [facility] hospitalist. The patient will be evaluated for further management. 2213: Paracentesis was performed according to the procedure note above. 2215: Lidocaine HCl 20 ml INFIL. 2217: LET Gel TOP. 2321: Fentanyl Citrate 50 mcg IV. Medical Decision Differential diagnosis: Etiologies such as metabolic, infection, hypo/hyperglycemia, electrolyte abnormalities, cardiac sources, intracerebral event, toxicologic, neurologic, as well as others were entertained. Medication Reconciliation: I attest that I have personally reviewed the patient' s current medication list. Blood pressure screening: Patient was found to have normal blood pressure on screening and does not require follow-up. Pt with end stage metastatic colorectal cancer with worsening liver mets no longer a candidate for treatment. Pt has been getting palliative paracentesis weekly and states they are considering doing them twice a week now also. Presentation of slowly increased abd pressure/discomfort consistent with timing of prior similar sx when pt due for paracentesis. No fevers or other focal symptoms. notes worsening appetite and poor po intake this week likely contribute to obvious clinical dehydration. Progression of disease noted on CT. Initial cxr read for pneumonia and recent hospitalizations led to cultures and coverage for possible HCAP pneumonia. Pt presentation not consistent with SBP, diagnostic tap performed at bedside after discussion with hospitalist. No other obvious source for leukocytosis. Pt and family made of aware of lab and imaging findings that suggest progression of disease and pt already enrolled in hospice. Pt given IVF here to help with hydration and careful pain medication. BP improved from initial hypotensive reading, doubt bacteremia/sepsis. More likely from volume depletion. Likely pt's symptoms all related to progression of her disease. Consults Time Called: 1949 Consulting Physician: Dr. Gomez [facility] hospitalist Returned Call: [phone] I reviewed the patient's case with him. He will evaluate the patient for further management. Impression Primary Impression: Dehydration Additional Impressions: Nausea Abdominal pain Leukocytosis Colorectal cancer, stage IV Scribe Attestation The scribe's documentation has been prepared under my direction and personally reviewed by me in its entirety. I confirm that the note above accurately reflects all work, treatment, procedures, and medical decision making performed by me. Departure Information Dispostion Being Evaluated By Hospitalist Referrals Parth Snow M.D. (PCP) Problem Qualifiers Additional Impressions: Abdominal pain Abdominal location: generalized Qualified Codes: R10.84 - Generalized abdominal pain Leukocytosis Leukocytosis type: unspecified Qualified Codes: D72.829 - Elevated white blood cell count, unspecified
[2017-01-11] MEDS ORDERED: LIDOCAINE/PRILOCAINE 2.5% EA CRM EXT ONE (22:15)
[2017-01-11] MEDS ORDERED: XYLOCAINE 1%/SOD BICARB 20 ML VIAL INFIL ONE (22:15)
[2017-01-11] MEDS ORDERED: LIDOCAINE/EPINEPH/TETRACAINE 1 EA SYR ONE (22:17)
[2017-01-11] MEDS ORDERED: PANT40TA PO (23:16)
[2017-01-11] MEDS ORDERED: VTMD1000 PO (23:16)
[2017-01-11] MEDS ORDERED: SCOP1DIS14 TD (23:16)
[2017-01-11] MEDS ORDERED: PROC1TAB5 PO (23:16)
[2017-01-11] MEDS ORDERED: ONDA8TAB13 SL (23:16)
[2017-01-11] MEDS ORDERED: ONDANSETRON 8MG OD TAB SL PRN (23:30)
[2017-01-12] VITALS (8 sets, daily range): BP systolic 93–110; BP diastolic 60–70; PULSE 90–104; TEMP 36.2–36.7; O2SAT 95–98; BMI 23.1
[2017-01-12] MEDS: OXYCODONE HCL IR 5 MG TAB (IMMEDIATE RELEASE) PO PRN ×4 (00:44→23:38)
[2017-01-12] MEDS ORDERED: SCOPOLAMINE 1.5 MG TDSY TD SCH (01:00)
--- NOTE | 2017-01-12 01:32 | History and Physical ---
History & Physical Date & Time of Service: Jan 12, 2017 at 00:59 Chief Complaint: Abdominal Pain, Ascites Primary Care Physician: Parth Snow M.D. 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 Pt said that she has been feeling very weak with low energy and abdominal pain associated with nausea. Pain is diffused, grade about 4/10, non radiated, alleviated after paracentesis. As per pt has been declined in the last few weeks. Pt is so weak, she is unable to walk and she cannot lift the spoon to feed herself. She has not been eating. said whenever she develops the abdominal discomfort is because her abdomen is distended. She has been getting weekly paracentesis for comfort care. Pt went on to get tap, she was sending home because there was not enough fluid to remove. Her last Paracentesis was last Friday where she got about btw 4 to 5 L of fluid removed that helped with the discomfort. Pt said that they are thinking to do the paracentesis twice a week. She is not getting any chemo or radiation. She denies any fever, chills, bleeding, vomiting, chest pain, palpitation and SOB. Past Medical/Surgical History Medical Problems: (1) Colorectal cancer Permanent Comment: STAGING: Colorectal, adeconcarcinoma, metastatic disease to liver and bone TREATMENT: 1. Systemic chemotherapy underneath the supervision of Dr. Emiliano Shelby. 2. Status post completion of radiation therapy 05/24/2016 received 3000 cGy to the left femur 3. Continued systemic chemotherapy Status: Chronic (2) GERD (gastroesophageal reflux disease) Status: Chronic Family History Cancer Hypertension Social History Smoking Status: Never Smoker Drug Use: none Marital Status: Housing status: lives with family Multi-Drug Resistant Organisms History of MDRO: No Allergies Coded Allergies: No Known Allergies (Unverified , 01/11/17) Home Medications Scheduled Cholecalciferol (Vitamin D3), 5,000 PO DAILY Docusate Sodium (Colace), 1 CAP PO BID Gabapentin (Neurontin), 300 MG PO TID Oxycodone HCl (Oxycontin), 10 MG PO BID Pantoprazole (Protonix), 40 MG PO DAILY Ranitidine (Zantac), 150 MG PO BID Scopolamine (Transderm-Scop), 1.5 MG TD Q72H Scheduled PRN Ondansetron Odt (Zofran Odt), 8 MG SL Q8WK PRN for Nausea or Vomiting Oxycodone Hcl (Oxycodone Hcl), 1 CAP PO QID PRN for Pain Polyethylene Glycol 3350 (Miralax), 1 TSP PO QD PRN for Constipation Prochlorperazine Maleate (Compazine), 10 MG PO Q6H PRN for Nausea Review of Systems Constitutional: + weight loss, + weakness, + fatigue, No fever, No chills Eyes: No worsening of vision, No discharge ENT: No hearing loss, No nasal symptoms, No sore throat Respiratory: No cough, No sputum, No wheezing Cardiovascular: No chest pain, No claudication, No palpitations Abdomen: + pain, + nausea Musculoskeletal: No calf pain Genitourinary - Female: No dysuria, No urinary frequency Neurologic: + weakness, + balance problems Psychiatric: + anxiety, No substance abuse Endocrine: + fatigue Hematologic / Lymphatic: No night sweats Integumentary: No rash, No itch Physical Exam Vital Signs Date Time Temp Pulse Resp B/P (MAP) Pulse Ox O2 Delivery O2 Flow Rate FiO2 01/11/17 23:42 96 24 101/71 96 01/11/17 23:11 102 22 112/78 95 Room Air 01/11/17 22:00 102 24 105/74 93 Room Air 01/11/17 21:37 105 24 108/77 95 Room Air 01/11/17 20:59 102 01/11/17 20:14 104 20 109/71 95 01/11/17 19:31 101 16 106/73 98 Room Air 01/11/17 18:44 102 13 107/65 92 Room Air 01/11/17 17:48 112 18 101/82 94 Room Air 01/11/17 17:13 36.3 100 16 113/69 96 Room Air 01/11/17 17:04 101 General Appearance: WD/WN, no apparent distress, + cachetic Head: normocephalic, atraumatic Eyes: normal inspection, PERRL, EOMI ENT: normal ENT inspection, hearing grossly normal Neck: supple, no JVD Respiratory/Chest: no respiratory distress, no accessory muscle use, + decreased breath sounds Cardiovascular: regular rate, rhythm, no JVD Abdomen/GI: normal bowel sounds, + tenderness, + distended Back: no CVA tenderness Extremities/Musculoskelatal: no calf tenderness Neurologic/Psych: alert, oriented x 3 Skin: warm/dry, no rash Diagnostics Laboratory Results Results Past 24 Hours Test 01/11/17 17:10 01/11/17 17:20 01/11/17 23:10 Range/Units White Blood Count 23.59 4.8-10.8 K/uL Red Blood Count 4.48 4.2-5.4 M/uL Hemoglobin 14.4 12.0-16.0 g/dL Hematocrit 40.9 37-47 % Mean Corpuscular Volume 91.3 80-100 fL Mean Corpuscular Hemoglobin 32.1 25-34 pg Mean Corpuscular Hemoglobin Concent 35.2 32-36 g/dl Platelet Count 265 130-400 K/uL Mean Platelet Volume 9.7 7.4-10.4 fL Neutrophils (%) (Auto) 81.3 % Lymphocytes (%) (Auto) 6.3 % Monocytes (%) (Auto) 10.4 % Eosinophils (%) (Auto) 0.4 % Basophils (%) (Auto) 0.1 % Neutrophils # (Auto) 19.19 1.4-6.5 K/uL Lymphocytes # (Auto) 1.48 1.2-3.4 K/uL Monocytes # (Auto) 2.45 0.11-0.59 K/uL Eosinophils # (Auto) 0.09 0-0.5 K/uL Basophils # (Auto) 0.03 0-0.2 K/uL RDW Standard Deviation 58.3 36.4-46.3 fL RDW Coefficient of Variation 17.7 11.5-14.5 % Immature Granulocyte % (Auto) 1.5 % Immature Granulocyte # (Auto) 0.35 0.00-0.02 K/uL Prothrombin Time 14.0 9.0-12.0 SECONDS Prothromb Time International Ratio 1.3 0.9-1.1 Sodium Level 125 136-145 mmol/L Potassium Level 4.9 3.5-5.1 mmol/L Chloride Level 91 98-107 mmol/L Carbon Dioxide Level 18 21-32 mmol/L Anion Gap 16.0 3-11 mmol/L Blood Urea Nitrogen 25 7-18 mg/dl Creatinine 1.20 0.60-1.20 mg/dl Est Creatinine Clear Calc Drug Dose 63.3 ml/min Estimated GFR () 62.8 Estimated GFR (Non- 54.2 BUN/Creatinine Ratio 20.9 10-20 Random Glucose 71 70-99 mg/dl Calcium Level 8.0 8.5-10.1 mg/dl Total Bilirubin 11.2 0.2-1 mg/dl Aspartate Amino Transf (AST/SGOT) 325 15-37 U/L Alanine Aminotransferase (ALT/SGPT) 52 12-78 U/L Alkaline Phosphatase 1261 45-117 U/L Total Protein 6.2 6.4-8.2 gm/dl Albumin 1.6 3.4-5.0 gm/dl Globulin 4.6 2.5-4.0 gm/dl Albumin/Globulin Ratio 0.3 0.9-2 Ammonia 15.0 11-32 umol/L Peritoneal Fluid Total Protein 0.8 g/dl Peritoneal Fluid Albumin < 0.6 g/dl Peritoneal Fluid LDH 340 IU Peritoneal Fluid Glucose 90 mg/dl Microbiology Results 01/11/17 Blood Culture, Received Pending 01/11/17 Blood Culture, Received Pending 01/11/17 Gram Stain - Preliminary, Resulted 01/11/17 Bacterial Culture, Resulted Pending Diagnostic Radiology CT SCAN OF THE ABDOMEN AND PELVIS WITHOUT IV CONTRAST CLINICAL HISTORY: Generalized abdominal pain. Leukocytosis. History of metastatic colon cancer. COMPARISON STUDY: Abdominal CT dated 11/26/2016. TECHNIQUE: CT scan of the abdomen and pelvis is performed from the lung bases to the proximal femora. Images are reviewed in the axial, sagittal, and coronal planes. IV contrast was not administered for this examination as per the referring clinician. Note that the examination was performed in significantly suboptimal fashion without oral and IV contrast. Automated dose control exposure was utilized. CT DOSE: 853.46 mGy.cm FINDINGS: Lung bases: The heart is normal in size and without pericardial effusion. The tip of a central venous infusion port catheter terminates in the right atrium. There are too numerous to count pulmonary nodules seen throughout both lung bases. This is consistent with diffuse pulmonary metastatic disease. The nodules have significantly increased in both size and number as compared to 11/26/2016. No airspace consolidation or pleural effusion is identified. Liver: The unenhanced liver is enlarged measuring 25 cm in length. There is nodularity of the hepatic surface contour. The liver is infiltrated by too numerous to count large low-attenuation lesions. This is consistent with multifocal hepatic metastatic disease. Although direct comparison is difficult due to differences in technique, this is likely progressed from 11/26/2016. There is no intrahepatic biliary ductal dilatation. Gallbladder: Hyperdense material within the gallbladder lumen may represent sludge. Spleen: The spleen is mildly enlarged measuring 13.5 cm in length. Pancreas: Grossly unremarkable but not well visualized. Adrenal glands: Unremarkable. Kidneys: The unenhanced kidneys demonstrate mild cortical atrophy and are without hydronephrosis. There are no renal calculi identified. There is no evidence of contour deforming renal mass lesion. Abdominal vasculature: The abdominal aorta is normal in course and caliber. Bowel: There is no bowel obstruction. There is mild colonic fecal retention. Wall thickening is suggested in the right colon. This is not well assessed. The appendix is normal as visualized. Peritoneum: There is a moderate to large volume of abdominopelvic ascites. No intraperitoneal free air is seen. Carcinomatosis is again suggested. Lymphadenopathy: Adenopathy seen previously is not well assessed.. Pelvic viscera: The bladder, uterus, and adnexa are normal as visualized. Skeletal structures: The skeletal structures are osteopenic. No lytic or blastic lesions are seen. Soft tissues: The patient is cachectic. Anasarca is noted. IMPRESSION: 1. Significant suboptimal examination without oral and IV contrast. 2. Findings are consistent with diffuse pulmonary metastatic disease. Pulmonary metastatic disease has significantly progressed as compared to 11/26/2016. No airspace consolidation is seen at the lung bases. 3. The liver is enlarged and infiltrated by too numerous to count metastatic lesions. This has also likely progressed from 11/26/2016. 4. The patient is cachectic and there is anasarca of the body wall. 5. Moderate to large volume of abdominopelvic ascites. Carcinomatosis is again suggested. 6. There is wall thickening questioned involving the right colon. This is not well evaluated. Correlate clinically for evidence of a diarrheal illness/colitis. This could also be related to portal colopathy. 7. Mild splenomegaly. 8. Additional findings as above. Electronically signed by: Shin Roberts M.D. 01/11/2017 7:22 PM Dictated Date/Time: 01/11/2017 7:11 PM ADDENDUM ADDENDUM: The pulmonary abnormality corresponds to diffuse/multifocal pulmonary metastatic disease. There is no radiographic evidence of superimposed airspace consolidation to indicate pneumonia. This was further characterized on the subsequently performed abdominal CT scan. Electronically signed by: Shin Roberts M.D. 01/11/2017 7:36 PM Dictated Date/Time: 01/11/2017 7:35 PM ORIGINAL REPORT SINGLE VIEW CHEST CLINICAL HISTORY: Leukocytosis. Weakness. FINDINGS: An AP, portable, upright chest radiograph is compared to study dated 09/06/2014 and correlated with chest CT dated 08/30/14. The examination is degraded by portable technique and patient rotation. A left subclavian central venous infusion port is new from 2014. The cardiomediastinal silhouette is unremarkable. There are low lung volumes. Patchy airspace consolidation and nodularity is seen in the mid to lower lungs. Trace pleural effusions are suspected. No pneumothorax is seen. The skeletal structures are osteopenic. The bony thorax is grossly intact. A paucity of bowel gas is noted in the upper abdomen. IMPRESSION: 1. Low lung volumes with bibasilar atelectasis. 2. There is patchy airspace consolidation and nodularity identified in the lower lobes. This likely represents an infectious/inflammatory pneumonitis given the reported history of leukocytosis. Superimposed congestive change is not excluded. Radiographic follow-up to resolution is recommended. 3. Suspect trace pleural effusions. Electronically signed by: Shin Roberts M.D. 01/11/2017 6:13 PM Dictated Date/Time: 01/11/2017 6:11 PM Impression Assessment and Plan ASCITES Due to stage 4 cancer mets to the liver CT Abd/Pelvis done showed Moderate to large volume of abdominopelvic ascites Received Levaquin, Vanco, Cefepime in the ER No clinical signs for SBP, except elevated WBC ER physician tried to do therapeutic paracentesis to help with the abdominal discomfort. But only removed 10 cc, ascitic fluid was sent for analysis will consult IR for therapeutic paracentesis Will start on Vanco and rocephin 2g IV If procalcitonin is negative, will d/c abx ELEVATED WBC Afebrile Blood cx and ascites cx pending CXR showed no evidence for pneumonia will check procalcitonin STAGE 4 CANCER WITH METS TO LIVER, BONE, LUNG No more radiation and chemo therapy Poor prognosis Comfort care continue pain control GENERALIZED WEAKNESS Mostly due to disease progression,poor oral intake PT/OT eval Fall precaution HYPONATREMIA Na 125 Due to poor oral intake Received 1L IVF in the ER Will increase PO intake Monitor BMP DVT px Lovenox subq (will hold Friday am dose for the paracentesis) CODE STATUS DNR as per patient Level of Care Med/Surg Resuscitation Status DO NOT RESUSCITATE VTE Prophylaxis VTE Risk Assessment Done? Y/N: Yes Risk Level: Moderate Given or contraindicated: Enoxaparin (Lovenox)SQ
[2017-01-12 01:38] LABS: PERIT FL WBC 138 /uL (0-300); PERITONEAL FLUID RBC < 3000 /uL
[2017-01-12] MEDS: CEFTRIAXONE SOD INJ 2,000 MG in DEXTROSE 5% 50ML 50 ML IV SCH (06:43)
[2017-01-12] MEDS ORDERED: VANCOMYCIN CONSULT ACTIVE PRN (06:45)
[2017-01-12 07:06] LABS: BASO % 0.1 %; BASO ABS # 0.02 K/uL (0-0.2); COMPLETE YES; HEMATOCRIT 33.9 % (37-47); LYMPH % 7.2 %; LYMPH ABS # 1.24 K/uL (1.2-3.4); MEAN CELL VOLUME 89.9 fL (80-100); MEAN CORPUSCULAR HEMOGLOBIN 30.8 pg (25-34); MEAN CORPUSCULAR HGB CONC 34.2 g/dl (32-36); MEAN PLATELET VOLUME 9.3 fL (7.4-10.4); MONO % 11.4 %; NEUT % 79.3 %; PLATELET COUNT 168 K/uL (130-400); RED BLOOD COUNT 3.77 M/uL (4.2-5.4); WHITE BLOOD COUNT 17.26 K/uL (4.8-10.8)
[2017-01-12 07:44] LABS: ALB/GLOB RATIO 0.4 (0.9-2); BUN/CREATININE RATIO 30.4 (10-20); CREATININE 0.93 mg/dl (0.60-1.20); POTASSIUM 5.1 mmol/L (3.5-5.1)
[2017-01-12] MEDS ORDERED: ENOXAPARIN 40 MG/0.4 ML SYR SQ SCH (08:00)
[2017-01-12] MEDS ORDERED: VANCOMYCIN INJ 1,000 MG in SODIUM CHLORIDE 0.9% 250ML 250 ML IV ONE (08:00)
[2017-01-12] MEDS: CHOLECALCIFEROL 1000 INTER.UNIT TAB PO SCH (08:00)
[2017-01-12 08:09] LABS: CALCIUM 7.3 mg/dl (8.5-10.1)
[2017-01-12] MEDS: PANTOprazole SOD 40 MG TAB PO SCH (08:09)
[2017-01-12] MEDS: RANITIDINE HCL 150 MG TAB PO SCH ×2 (08:10→19:31)
[2017-01-12] MEDS: GABAPENTIN 300 MG CAP PO SCH ×3 (08:10→19:30)
[2017-01-12] MEDS: CHECK SCOPOLAMINE PATCH PLACEMENT SCH ×3 (08:11→23:38)
[2017-01-12] MEDS: DOCUSATE SODIUM 100 MG CAP PO SCH ×2 (08:11→19:30)
[2017-01-12] MEDS: OXYCODONE HCL 10 MG TABCR (OXYCONTIN) PO SCH ×2 (08:14→19:30)
--- NOTE | 2017-01-12 14:45 | Pharmacy Progress Note ---
Pharmacy Abx Initial Consult Date of Service Jan 12, 2017. Pharmacy Dosing Scope Date of Consult: 01/12/17 Consultation requested by: Dr. Gomez Pharmacy is consulted to initiate Vancomycin IV dosing empiric therapy, order appropriate labs and adjust drug dose/frequency. Subjective The patient is a 46 year old female admitted on Jan 11, 2017 at 23:10. Objective Height (Feet): 5 Height (Inches): 8.00 Weight (Kilograms): 68.800 Vital Signs (Past 12Hrs) Vital Signs Past 12 Hours Date Time Temp Pulse Resp B/P (MAP) Pulse Ox O2 Delivery O2 Flow Rate FiO2 01/12/17 11:07 36.6 91 16 93/60 (71) 95 01/12/17 08:00 98 Room Air 01/12/17 07:57 36.4 90 16 110/64 (79) 98 Lab Results (24Hrs) Laboratory Tests (24 Hours) Test 01/12/17 06:50 White Blood Count 17.26 K/uL (4.8-10.8) H Red Blood Count 3.77 M/uL (4.2-5.4) L Hemoglobin 11.6 g/dL (12.0-16.0) L Hematocrit 33.9 % (37-47) L Mean Corpuscular Volume 89.9 fL (80-100) Mean Corpuscular Hemoglobin 30.8 pg (25-34) Mean Corpuscular Hemoglobin Concent 34.2 g/dl (32-36) Platelet Count 168 K/uL (130-400) Mean Platelet Volume 9.3 fL (7.4-10.4) Neutrophils (%) (Auto) 79.3 % Lymphocytes (%) (Auto) 7.2 % Monocytes (%) (Auto) 11.4 % Eosinophils (%) (Auto) 1.0 % Basophils (%) (Auto) 0.1 % Neutrophils # (Auto) 13.69 K/uL (1.4-6.5) H Lymphocytes # (Auto) 1.24 K/uL (1.2-3.4) Monocytes # (Auto) 1.96 K/uL (0.11-0.59) H Eosinophils # (Auto) 0.18 K/uL (0-0.5) Basophils # (Auto) 0.02 K/uL (0-0.2) Procalcitonin 4.11 ng/ml (0-0.5) H Micro Results Date/Time Source Procedure Growth Status 01/11/17 19:33 Blood Blood Culture Pending Received 01/11/17 18:45 Blood Blood Culture Pending Received 01/11/17 23:10 Ascities Fluid Gram Stain - Final Resulted 01/11/17 23:10 Ascities Fluid Bacterial Culture Pending Resulted Risk Factors for Resistance * Immunocompromised (chemotherapy or immunomodulators) for metastatic colon cancer Assessment & Plan Assessment 46 year old female admitted on 01/11/17. Plan Pharmacy has been consulted for treatment of empiric antimicrobial therapy. Vancomycin IV * Maintenance dose: 1000 mg IV (15 mg/kg) every 12 hours * Goal trough level for empiric therapy : 15 to 20 mcg/mL * Trough level ordered for 01/13/17 ~30 minutes before the 2000 dose * Please extend the stop date if Vancomycin therapy is clinically indicated to continue beyond 48 hours. Pharmacy will continue to follow and will adjust dose/frequency as necessary. Thank you.
[2017-01-12] MEDS: VANCOMYCIN INJ 1,000 MG in SODIUM CHLORIDE 0.9% 250ML 250 ML IV SCH (19:30)
--- NOTE | 2017-01-12 22:15 | Progress Note ---
Medicine Progress Note Date & Time of Visit: Jan 12, 2017 at 14:50 . Subjective No fever. No cough or SOB. No chest pain. Persistent abdominal discomfort, mostly RLQ. Anorexic. Nauseated, but no emesis. No BM for a few days. Having urinary retention, but not symptomatic. Voiding small amounts. . Objective Last 8 Hrs Date Time Temp Pulse Resp B/P (MAP) Pulse Ox O2 Delivery O2 Flow Rate FiO2 01/12/17 20:00 Room Air 01/12/17 19:25 36.2 104 20 101/70 (80) 97 Room Air 01/12/17 16:22 36.4 96 16 104/70 (81) 98 Room Air 01/12/17 16:00 98 Room Air Physical Exam: General- chronically ill-appearing, cachectic Lungs- clear Heart- RRR Abdomen- + BS, moderately distended, soft, moderate tenderness Extremities- no pretibial edema or calf tenderness Neuro- alert, mild confusion . Laboratory Results: Last 24 Hours Test 01/11/17 23:10 01/12/17 06:50 Peritoneal Fluid Color YELLOW Peritoneal Fluid Appearance CLEAR Peritoneal Fluid WBC 138 /uL Peritoneal Fluid RBC < 3000 /uL Peritoneal Fld Mononuclear WBCs (%) 47.6 % Peritoneal Fld Polynuclear WBCs (%) 52.4 % Peritoneal Fluid Total Protein 0.8 g/dl Peritoneal Fluid Albumin < 0.6 g/dl Peritoneal Fluid LDH 340 IU Peritoneal Fluid Glucose 90 mg/dl White Blood Count 17.26 K/uL Red Blood Count 3.77 M/uL Hemoglobin 11.6 g/dL Hematocrit 33.9 % Mean Corpuscular Volume 89.9 fL Mean Corpuscular Hemoglobin 30.8 pg Mean Corpuscular Hemoglobin Concent 34.2 g/dl Platelet Count 168 K/uL Mean Platelet Volume 9.3 fL Neutrophils (%) (Auto) 79.3 % Lymphocytes (%) (Auto) 7.2 % Monocytes (%) (Auto) 11.4 % Eosinophils (%) (Auto) 1.0 % Basophils (%) (Auto) 0.1 % Neutrophils # (Auto) 13.69 K/uL Lymphocytes # (Auto) 1.24 K/uL Monocytes # (Auto) 1.96 K/uL Eosinophils # (Auto) 0.18 K/uL Basophils # (Auto) 0.02 K/uL RDW Standard Deviation 57.6 fL RDW Coefficient of Variation 17.7 % Immature Granulocyte % (Auto) 1.0 % Immature Granulocyte # (Auto) 0.17 K/uL Sodium Level 126 mmol/L Potassium Level 5.1 mmol/L Chloride Level 95 mmol/L Carbon Dioxide Level 18 mmol/L Anion Gap 13.0 mmol/L Blood Urea Nitrogen 28 mg/dl Creatinine 0.93 mg/dl Est Creatinine Clear Calc Drug Dose 76.2 ml/min Estimated GFR () 85.4 Estimated GFR (Non- 73.7 BUN/Creatinine Ratio 30.4 Random Glucose 70 mg/dl Calcium Level 7.3 mg/dl Total Bilirubin 9.2 mg/dl Aspartate Amino Transf (AST/SGOT) 252 U/L Alanine Aminotransferase (ALT/SGPT) 43 U/L Alkaline Phosphatase 997 U/L Total Protein 4.9 gm/dl Albumin 1.3 gm/dl Globulin 3.6 gm/dl Albumin/Globulin Ratio 0.4 Procalcitonin 4.11 ng/ml Date/Time Source Procedure Growth Status 01/11/17 23:10 Ascities Fluid Gram Stain - Final Resulted 01/11/17 23:10 Ascities Fluid Bacterial Culture Pending Resulted Assessment & Plan ABDOMINAL PAIN CT demonstrated multiple liver mets, ascites, no obstruction. MALIGNANT ASCITES Therapeutic paracentesis with US guidance. LEUKOCYTOSIS WBC on admission 23,590. No infiltrates on chest x-ray. Blood cultures obtained. Peritoneal fluid- 138 WBC's, no organisms on gram stain, culture negative so far. Procalcitonin elevated, but could be secondary to metastatic Ca. Continue empiric antibiotics for 48 hours pending culture results. COLORECTAL CA, STAGE IV Continue palliative care. VTE PROPHYLAXIS Patient declines SQ enoxaparin and SCD's. DISPOSITION Expected return to home with hospice. Medical follow-up with COOKIE Mcgowan. Medical Oncology follow-up with Dr. Emiliano Shelby. . Current Inpatient Medications: Current Inpatient Medications Medications (Trade) Dose Ordered Sig/Mary Route Start Time Stop Time Status Last Admin Dose Admin Enoxaparin Sodium (Lovenox Inj) 40 mg Q24H SQ 01/12/17 08:00 02/11/17 07:59 Cholecalciferol (Vitamin D Tab) 5,000 inter.unit DAILY PO 01/12/17 08:00 02/11/17 08:59 Docusate Sodium (coLACE CAP) 100 mg BID PO 01/12/17 08:00 02/11/17 08:59 01/12/17 19:30 100 MG Gabapentin (Neurontin Cap) 300 mg TID PO 01/12/17 08:00 02/11/17 08:59 01/12/17 19:30 300 MG Ondansetron HCl (Zofran Odt) 8 mg Q8H PRN SL 01/11/17 23:30 02/10/17 23:29 Oxycodone HCl (Oxycontin Tab) 10 mg BID PO 01/12/17 08:00 01/26/17 08:59 01/12/17 19:30 10 MG Pantoprazole Sodium (Protonix Tab) 40 mg DAILY PO 01/12/17 08:00 02/11/17 08:59 01/12/17 08:09 40 MG Ranitidine HCl (zANTac TAB) 150 mg BID PO 01/12/17 08:00 02/11/17 08:59 01/12/17 19:31 150 MG Scopolamine (Transderm-Scop Patch) 1.5 mg Q72H TD 01/12/17 01:00 02/11/17 00:59 01/12/17 00:44 1.5 MG Miscellaneous (Remove Transderm-Scop Patch) 1 ea Q72H N/A 01/15/17 00:59 02/14/17 00:58 Miscellaneous Information (Check Scopolamine Patch Placement) 1 ea QS N/A 01/12/17 08:00 02/11/17 07:59 01/12/17 15:44 1 EA Oxycodone HCl (Roxicodone Immediate Rel Tab) 5 mg Q4HWA PRN PO 01/11/17 23:30 01/25/17 23:29 01/12/17 10:04 5 MG Ceftriaxone Sodium 2000 mg/ Dextrose 70 ml @ 100 mls/hr Q24H IV 01/12/17 07:00 01/14/17 06:59 01/12/17 06:43 100 MLS/HR Vancomycin HCl (Consult) 1 ea UD PRN N/A 01/12/17 06:45 02/11/17 06:44 Heparin Sodium (Porcine) (Heparin 100 Unit/ml 5ml Flush) 1 ml PRN PRN FLUSH 01/12/17 07:00 02/11/17 06:59 01/12/17 22:06 1 ML Vancomycin HCl 1000 mg/Sodium Chloride 270 ml @ 125 mls/hr Q12@08,20 IV 01/12/17 20:00 01/14/17 07:59 01/12/17 19:30 125 MLS/HR
[2017-01-13 03:03] VITALS: BP 98/65; PULSE 102; TEMP 36.3; O2SAT 97
[2017-01-13 05:46] VITALS: BMI 23.1; BMI 23.8
[2017-01-13] MEDS: CEFTRIAXONE SOD INJ 2,000 MG in DEXTROSE 5% 50ML 50 ML IV SCH (05:57)
[2017-01-13 06:52] LABS: HEMATOCRIT 32.7 % (37-47); MEAN CELL VOLUME 89.6 fL (80-100); MEAN CORPUSCULAR HGB CONC 34.6 g/dl (32-36); MEAN PLATELET VOLUME 9.7 fL (7.4-10.4); PLATELET COUNT 164 K/uL (130-400); RED BLOOD COUNT 3.65 M/uL (4.2-5.4); WHITE BLOOD COUNT 16.01 K/uL (4.8-10.8)
[2017-01-13 07:08] LABS: INR 1.4 (0.9-1.1); PARTIAL THROMBOPLASTIN RATIO 1.7; PROTHROMBIN TIME (PATIENT) 14.9 SECONDS (9.0-12.0)
[2017-01-13 07:17] LABS: BASO % 0.1 %; BASO ABS # 0.02 K/uL (0-0.2); COMPLETE YES; EOS % 1.7 %; IG% 1.4 %; LYMPH % 7.4 %; LYMPH ABS # 1.18 K/uL (1.2-3.4); MONO % 11.3 %; NEUT % 78.1 %
[2017-01-13 07:22] VITALS: BP 106/74; PULSE 107; TEMP 36.4; O2SAT 96
[2017-01-13 07:29] LABS: BUN/CREATININE RATIO 29.3 (10-20); CALCIUM 7.4 mg/dl (8.5-10.1); CREATININE 0.94 mg/dl (0.60-1.20); POTASSIUM 4.6 mmol/L (3.5-5.1)
[2017-01-13] MEDS: RANITIDINE HCL 150 MG TAB PO SCH ×2 (07:59→19:47)
[2017-01-13] MEDS: DOCUSATE SODIUM 100 MG CAP PO SCH ×2 (08:00→19:46)
[2017-01-13] MEDS: CHOLECALCIFEROL 1000 INTER.UNIT TAB PO SCH (08:00)
[2017-01-13] MEDS: GABAPENTIN 300 MG CAP PO SCH ×3 (08:00→19:47)
[2017-01-13] MEDS: PANTOprazole SOD 40 MG TAB PO SCH (08:01)
[2017-01-13] MEDS: OXYCODONE HCL 10 MG TABCR (OXYCONTIN) PO SCH ×2 (08:05→19:49)
[2017-01-13] MEDS: VANCOMYCIN INJ 1,000 MG in SODIUM CHLORIDE 0.9% 250ML 250 ML IV SCH (08:06)
[2017-01-13] MEDS: CHECK SCOPOLAMINE PATCH PLACEMENT SCH (08:06)
[2017-01-13] MEDS ORDERED: POLYETHYLENE (MIRALAX) 17 GM PACK PO PRN (09:30)
--- NOTE | 2017-01-13 10:58 | DIAGNOSTIC IMAGING REPORT ---
ULTRASOUND GUIDED PARACENTESIS CLINICAL HISTORY: malignant ascites 70 COMPARISON STUDY: No previous studies for comparison. PROCEDURE: The risks, benefits, and alternatives to the procedure were discussed with the patient including the risk of bleeding, infection and injury to adjacent structures. The patient agreed to the procedure and informed written consent was obtained. The procedure was performed by Dr. Aviles following a time out. Following real-time ultrasound localization, the skin was prepped and draped. Following local anesthesia with Xylocaine, the sheath paracentesis needle was inserted and approximately 3 liters of straw-colored fluid was removed by vacuum suction. The patient tolerated the procedure well and no immediate complications were evident. IMPRESSION: Ultrasound-guided paracentesis with removal of 3 liters of ascites. Electronically signed by: Bry Aviles M.D. 01/13/2017 10:57 AM Dictated Date/Time: 01/13/2017 10:55 AM
[2017-01-13 11:04] VITALS: BP 96/65; PULSE 99; TEMP 36.7; O2SAT 97
[2017-01-13] MEDS: OXYCODONE HCL IR 5 MG TAB (IMMEDIATE RELEASE) PO PRN ×2 (14:34→23:47)
[2017-01-13 15:35] VITALS: BP 105/56; PULSE 107; TEMP 36.3; O2SAT 96
[2017-01-13 19:11] VITALS: BP 103/66; PULSE 102; TEMP 36.3; O2SAT 97
[2017-01-13] MEDS ORDERED: VANCOMYCIN TROUGH SCH (19:30)
--- NOTE | 2017-01-13 22:20 | Progress Note ---
Medicine Progress Note Date & Time of Visit: Jan 13, 2017 at 18:20 . Subjective Paracentesis performed earlier today with improvement of abdominal discomfort. No fever. No cough or shortness of breath. No chest pain. Nausea and anorexia improved. No diarrhea. Huff catheter inserted for urinary retention. Weak, but able to ambulate with walker in room. . Objective Last 8 Hrs Date Time Temp Pulse Resp B/P (MAP) Pulse Ox O2 Delivery O2 Flow Rate FiO2 01/13/17 19:11 36.3 102 16 103/66 (78) 97 Room Air 01/13/17 16:36 Room Air 01/13/17 15:35 36.3 107 18 105/56 (72) 96 Room Air Physical Exam: General- chronically ill-appearing, cachectic, no acute distress Eyes- sclerae icteric Lungs- clear Heart- RRR Abdomen- + BS, less distended, soft, nontender Extremities- no pretibial edema or calf tenderness Neuro- alert, oriented . Laboratory Results: Last 24 Hours Test 01/13/17 06:17 White Blood Count 16.01 K/uL Red Blood Count 3.65 M/uL Hemoglobin 11.3 g/dL Hematocrit 32.7 % Mean Corpuscular Volume 89.6 fL Mean Corpuscular Hemoglobin 31.0 pg Mean Corpuscular Hemoglobin Concent 34.6 g/dl Platelet Count 164 K/uL Mean Platelet Volume 9.7 fL Neutrophils (%) (Auto) 78.1 % Lymphocytes (%) (Auto) 7.4 % Monocytes (%) (Auto) 11.3 % Eosinophils (%) (Auto) 1.7 % Basophils (%) (Auto) 0.1 % Neutrophils # (Auto) 12.50 K/uL Lymphocytes # (Auto) 1.18 K/uL Monocytes # (Auto) 1.81 K/uL Eosinophils # (Auto) 0.27 K/uL Basophils # (Auto) 0.02 K/uL RDW Standard Deviation 57.6 fL RDW Coefficient of Variation 17.6 % Immature Granulocyte % (Auto) 1.4 % Immature Granulocyte # (Auto) 0.23 K/uL Prothrombin Time 14.9 SECONDS Prothromb Time International Ratio 1.4 Activated Partial Thromboplast Time 43.4 SECONDS Partial Thromboplastin Ratio 1.7 Sodium Level 127 mmol/L Potassium Level 4.6 mmol/L Chloride Level 95 mmol/L Carbon Dioxide Level 19 mmol/L Anion Gap 13.0 mmol/L Blood Urea Nitrogen 28 mg/dl Creatinine 0.94 mg/dl Est Creatinine Clear Calc Drug Dose 75.4 ml/min Estimated GFR () 84.3 Estimated GFR (Non- 72.8 BUN/Creatinine Ratio 29.3 Random Glucose 79 mg/dl Calcium Level 7.4 mg/dl Assessment & Plan ABDOMINAL PAIN CT demonstrated multiple liver mets, ascites, no obstruction. MALIGNANT ASCITES Therapeutic paracentesis with US guidance performed with improvement of abdominal discomfort. LEUKOCYTOSIS WBC on admission 23,590. No infiltrates on chest x-ray. Blood cultures obtained. Peritoneal fluid- 138 WBC's, no organisms on gram stain, culture negative so far. Procalcitonin elevated, but could be secondary to metastatic Ca. Received empiric antibiotics for 48 hours pending culture results. Cultures negative, so antibiotics discontinued. COLORECTAL CA, STAGE IV Continue palliative care. VTE PROPHYLAXIS Patient declines SQ enoxaparin and SCD's. DISPOSITION Expected return to home with hospice. Medical follow-up with [facility]gow[facility]. Medical Oncology follow-up with Dr. Emiliano Shelby. . Current Inpatient Medications: Current Inpatient Medications Medications (Trade) Dose Ordered Sig/Mary Route Start Time Stop Time Status Last Admin Dose Admin Cholecalciferol (Vitamin D Tab) 5,000 inter.unit DAILY PO 01/12/17 08:00 02/11/17 08:59 Docusate Sodium (coLACE CAP) 100 mg BID PO 01/12/17 08:00 02/11/17 08:59 01/13/17 19:46 100 MG Gabapentin (Neurontin Cap) 300 mg TID PO 01/12/17 08:00 02/11/17 08:59 01/13/17 19:47 300 MG Ondansetron HCl (Zofran Odt) 8 mg Q8H PRN SL 01/11/17 23:30 02/10/17 23:29 Oxycodone HCl (Oxycontin Tab) 10 mg BID PO 01/12/17 08:00 01/26/17 08:59 01/13/17 19:49 10 MG Pantoprazole Sodium (Protonix Tab) 40 mg DAILY PO 01/12/17 08:00 02/11/17 08:59 01/13/17 08:01 40 MG Ranitidine HCl (zANTac TAB) 150 mg BID PO 01/12/17 08:00 02/11/17 08:59 01/13/17 19:47 150 MG Oxycodone HCl (Roxicodone Immediate Rel Tab) 5 mg Q4HWA PRN PO 01/11/17 23:30 01/25/17 23:29 01/13/17 14:34 5 MG Heparin Sodium (Porcine) (Heparin 100 Unit/ml 5ml Flush) 1 ml PRN PRN FLUSH 01/12/17 07:00 02/11/17 06:59 01/12/17 22:06 1 ML Polyethylene (Miralax Powder Packet) 17 gm DAILY PRN PO 01/13/17 09:30 02/12/17 09:29
[2017-01-13 23:54] VITALS: BP 97/69; PULSE 102; TEMP 36.4; O2SAT 96
[2017-01-14 03:36] VITALS: BP 113/76; PULSE 102; TEMP 36.2; O2SAT 97
[2017-01-14 06:17] VITALS: Ht 172.7 cm; Wt 67.7 kg
[2017-01-14 07:31] VITALS: BP 101/66; PULSE 104; TEMP 36.2; O2SAT 97
[2017-01-14] MEDS: CHOLECALCIFEROL 1000 INTER.UNIT TAB PO SCH (07:48)
[2017-01-14] MEDS: RANITIDINE HCL 150 MG TAB PO SCH (07:50)
[2017-01-14] MEDS: GABAPENTIN 300 MG CAP PO SCH (07:50)
[2017-01-14] MEDS: OXYCODONE HCL 10 MG TABCR (OXYCONTIN) PO SCH (07:50)
[2017-01-14] MEDS: PANTOprazole SOD 40 MG TAB PO SCH (07:51)
[2017-01-14] MEDS: DOCUSATE SODIUM 100 MG CAP PO SCH (07:51)
[2017-01-14 11:15] VITALS: BP 106/69; PULSE 105; TEMP 36.6; O2SAT 99
--- NOTE | 2017-01-14 11:52 | Discharge Instructions ---
Discharge Instructions Date of Service Jan 14, 2017. Admission Reason for Admission: abdominal pain . Discharge Discharge Diagnosis / Problem: abdominal pain Discharge Goals Goal(s): Decrease discomfort Activity Recommendations Activity Limitations: as noted below use walker so you don't fall . . Instructions / Follow-Up Instructions / Follow-Up APPOINTMENTS: [facility] Emiliano Shelby MD INSTRUCTIONS: Hospice team will show you how to take care of bladder catheter. You don't have to use scopolamine patch on a regular basis- just as needed for severe chest congestion. No need for oxygen at home at this time. Your oxygen levels are very good. If you do need it in the future, Hospice can arrange. Will ask Dr. Shelby to coordinate arrangements for drainage of fluid ( paracentesis). This can probably be done at [facility] if you go to [facility]. Call Hospice team or any of your providers if you have: * uncontrolled pain * trouble breathing * any unanswered questions or concerns Call if you have any questions or problems. My cell # is [phone]. You can also reach a [facility] hospitalist on duty at [facility] 24 hours a day by calling [phone]. Please take good care of yourself. Justin Benavidez . Current Hospital Diet Patient's current hospital diet: Regular Diet Discharge Diet Recommended Diet: Regular Diet Pending Studies Studies pending at discharge: no Medical Emergencies . Who to Call and When: Medical Emergencies: If at any time you feel your situation is an emergency, please call 911 immediately. . Non-Emergent Contact Non-Emergency issues call your: Primary Care Provider, Hospital Doctor, Oncologist, Specialist (Hospice team) . . "Provider Documentation" section prepared by Justin Benavidez. . VTE Core Measure Inpt VTE Proph given/why not?: Enoxaparin ([place]ovenox) [place] Drug Monitoring Program Search Results: patient reviewed within database, no issues identified (Rx's appropriate. Hospice patient.)
[2017-01-14 13:59] VITALS: BP 106/69; PULSE 105; TEMP 36.6; O2SAT 99
--- NOTE | 2017-01-14 22:36 | Progress Note ---
Medicine Progress Note Date & Time of Visit: Jan 14, 2017 at 09:00 . Subjective Doing fairly well. Abdominal discomfort improved since paracentesis yesterday. No fever. No cough. No nausea or vomiting. Tires easily. . Objective Last 8 Hrs Date Time Temp Pulse Resp B/P (MAP) Pulse Ox O2 Delivery O2 Flow Rate FiO2 01/14/17 07:31 36.2 104 16 101/66 (78) 97 Room Air 01/14/17 03:36 36.2 102 20 113/76 (88) 97 Room Air Physical Exam: General- chronically ill-appearing, cachectic, no acute distress Eyes- sclerae icteric Lungs- clear Heart- RRR Abdomen- + BS, moderately distended, soft, nontender Extremities- no pretibial edema or calf tenderness Neuro- alert, oriented . Assessment & Plan ABDOMINAL PAIN CT demonstrated multiple liver mets, ascites, no obstruction. MALIGNANT ASCITES Therapeutic paracentesis with US guidance performed with improvement of abdominal discomfort. LEUKOCYTOSIS WBC on admission 23,590. Chest x-ray initially interpreted as possible infiltrates, but densities felt to represent metastatic disease per CT. Blood cultures obtained. Peritoneal fluid- 138 WBC's, no organisms on gram stain, culture negative. Procalcitonin elevated, but could be secondary to metastatic Ca. Received empiric antibiotics for 48 hours pending culture results. Cultures negative, so antibiotics discontinued. COLORECTAL CA, STAGE IV Continue palliative care. VTE PROPHYLAXIS Patient declined SQ enoxaparin and SCD's. DISPOSITION Arrangements being made for return to home with hospice. Transition to hosp[facility] at [facility] anticipated. Medical follow-up with [facility] Mcgowan. Medical Oncology follow-up with Dr. Emiliano Shelby. . Procedures: CT abdomen + pelvis IV meds US guided therapeutic paracentesis . Current Inpatient Medications: Current Inpatient Medications Medications (Trade) Dose Ordered Sig/Mary Route Start Time Stop Time Status Last Admin Dose Admin Cholecalciferol (Vitamin D Tab) 5,000 inter.unit DAILY PO 01/12/17 08:00 02/11/17 08:59 Docusate Sodium (coLACE CAP) 100 mg BID PO 01/12/17 08:00 02/11/17 08:59 01/14/17 07:51 100 MG Gabapentin (Neurontin Cap) 300 mg TID PO 01/12/17 08:00 02/11/17 08:59 01/14/17 07:50 300 MG Ondansetron HCl (Zofran Odt) 8 mg Q8H PRN SL 01/11/17 23:30 02/10/17 23:29 01/14/17 09:00 8 MG Oxycodone HCl (Oxycontin Tab) 10 mg BID PO 01/12/17 08:00 01/26/17 08:59 01/14/17 07:50 10 MG Pantoprazole Sodium (Protonix Tab) 40 mg DAILY PO 01/12/17 08:00 02/11/17 08:59 01/14/17 07:51 40 MG Ranitidine HCl (zANTac TAB) 150 mg BID PO 01/12/17 08:00 02/11/17 08:59 01/14/17 07:50 150 MG Oxycodone HCl (Roxicodone Immediate Rel Tab) 5 mg Q4HWA PRN PO 01/11/17 23:30 01/25/17 23:29 01/13/17 23:47 5 MG Heparin Sodium (Porcine) (Heparin 100 Unit/ml 5ml Flush) 1 ml PRN PRN FLUSH 01/12/17 07:00 02/11/17 06:59 01/12/17 22:06 1 ML Polyethylene (Miralax Powder Packet) 17 gm DAILY PRN PO 01/13/17 09:30 02/12/17 09:29
--- NOTE | 2017-01-14 22:38 | Discharge Summary ---
Discharge Summary Date of Service Jan 14, 2017. Discharge Summary Admission Date: Jan 11, 2017 at 23:10 Discharge Date: Jan 14, 2017 Discharge Disposition: Home with services (Hospice) Principal Diagnosis: abdominal pain stage IV colorectal carcinoma with malignant ascites, liver mets, pulmonary mets . Procedures: CT abdomen + pelvis IV meds US guided therapeutic paracentesis . Medication Reconciliation Continued Medications: Cholecalciferol (Vitamin D3) 1,000 Inter.unit Tab 5000 PO DAILY Docusate Sodium (Colace) 100 Mg Cap 1 CAP PO BID for 15 Days, #30 CAP Gabapentin (Neurontin) 300 Mg Cap 300 MG PO TID, CAP Ondansetron Odt (Zofran Odt) 8 Mg Tab 8 MG SL Q8WK PRN for Nausea or Vomiting, TAB Oxycodone HCl (Oxycontin) 10 Mg Tabcr 10 MG PO BID Oxycodone Hcl (Oxycodone Hcl) 5 Mg Cap 5 MG PO QID PRN for Pain, CAP Pantoprazole (Protonix) 40 Mg Tab 40 MG PO DAILY, #30 TAB Polyethylene Glycol 3350 (Miralax) 1 Pow Pow 1 TSP PO QD PRN for Constipation Prochlorperazine Maleate (Compazine) 10 Mg Tab 10 MG PO Q6H PRN for Nausea, TAB Ranitidine (Zantac) 150 Mg Tab 150 MG PO BID for 30 Days, #60 TAB 3 Refills Scopolamine (Transderm-Scop) 1 Mg/3 Days Dis 1.5 MG TD Q72H, PATCH Admission Information HPI (per Admitting provider): 46 year old female with PMH 46-year-old female, a case of 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 Pt said that she has been feeling very weak with low energy and abdominal pain associated with nausea. Pain is diffused, grade about 4/10, non radiated, alleviated after paracentesis. As per pt has been declined in the last few weeks. Pt is so weak, she is unable to walk and she cannot lift the spoon to feed herself. She has not been eating. said whenever she develops the abdominal discomfort is because her abdomen is distended. She has been getting weekly paracentesis for comfort care. Pt went on to get tap, she was sending home because there was not enough fluid to remove. Her last Paracentesis was last Friday where she got about btw 4 to 5 L of fluid removed that helped with the discomfort. Pt said that they are thinking to do the paracentesis twice a week. She is not getting any chemo or radiation. She denies any fever, chills, bleeding, vomiting, chest pain, palpitation and SOB. . Physical Exam (per Admitting): General Appearance: WD/WN, no apparent distress, + cachetic Head: normocephalic, atraumatic Eyes: normal inspection, PERRL, EOMI ENT: normal ENT inspection, hearing grossly normal Neck: supple, no JVD Respiratory/Chest: no respiratory distress, no accessory muscle use, + decreased breath sounds Cardiovascular: regular rate, rhythm, no JVD Abdomen/GI: normal bowel sounds, + tenderness, + distended Back: no CVA tenderness Extremities/Musculoskelatal: no calf tenderness Neurologic/Psych: alert, oriented x 3 Skin: warm/dry, no rash Hospital Course ABDOMINAL PAIN CT demonstrated multiple liver mets, ascites, no obstruction. MALIGNANT ASCITES Therapeutic paracentesis with US guidance performed with improvement of abdominal discomfort. LEUKOCYTOSIS WBC on admission 23,590. Chest x-ray initially interpreted as possible infiltrates, but densities felt to represent metastatic disease per CT. Blood cultures obtained. Peritoneal fluid- 138 WBC's, no organisms on gram stain, culture negative. Procalcitonin elevated, but could be secondary to metastatic Ca. Received empiric antibiotics for 48 hours pending culture results. Cultures negative, so antibiotics discontinued. COLORECTAL CA, STAGE IV Continue palliative care. VTE PROPHYLAXIS Patient declined SQ enoxaparin and SCD's. DISPOSITION Arrangements being made for return to home with hospice. Transition to hospice care at [facility] anticipated. Medical follow-up with COOK[facility] Mcgowan. Medical Oncology follow-up with Dr. Emiliano Shelby. . Total time spent on discharge = 40 min. This includes examination of the patient, discharge planning, medication reconciliation, and communication with other providers. . Discharge Instructions Date of Service Jan 14, 2017. Admission Reason for Admission: abdominal pain . Discharge Discharge Diagnosis / Problem: abdominal pain Discharge Goals Goal(s): Decrease discomfort Activity Recommendations Activity Limitations: as noted below use walker so you don't fall . . Instructions / Follow-Up Instructions / Follow-Up APPOINTMENTS: [facility] Emiliano Shelby MD INSTRUCTIONS: Hospice team will show you how to take care of bladder catheter. You don't have to use scopolamine patch on a regular basis- just as needed for severe chest congestion. No need for oxygen at home at this time. Your oxygen levels are very good. If you do need it in the future, Hospice can arrange. Will ask Dr. Shelby to coordinate arrangements for drainage of fluid ( paracentesis). This can probably be done at [facility] if you go to [facility]. Call Hospice team or any of your providers if you have: * uncontrolled pain * trouble breathing * any unanswered questions or concerns Call if you have any questions or problems. My cell # is [phone]. You can also reach a [facility] hospitalist on duty at [facility] 24 hours a day by calling [phone]. Please take good care of yourself. Justin Benavidez . Current Hospital Diet Patient's current hospital diet: Regular Diet Discharge Diet Recommended Diet: Regular Diet Pending Studies Studies pending at discharge: no Medical Emergencies . Who to Call and When: Medical Emergencies: If at any time you feel your situation is an emergency, please call 911 immediately. . Non-Emergent Contact Non-Emergency issues call your: Primary Care Provider, Hospital Doctor, Oncologist, Specialist (Hospice team) . . "Provider Documentation" section prepared by Justin Benavidez. . VTE Core Measure Inpt VTE Proph given/why not?: Enoxaparin ([place]ovenox) [place] Drug Monitoring [place] Search Results: patient reviewed within database, no issues identified (Rx's appropriate. Hospice patient.) . Additional Copies To Lynette Nicole,C.Lucinda.N.P.; Emiliano Shelby M.D.
== END 2017-01-14 14:25 | disposition hospice, inpatient (51) | DRG 375 ==
LOC: EDBD 16:41 → C.EDA 16:43 → C.4E 23:10 → ENRESERV 23:19
PROVIDERS: ADMIT Internal Medicine; ATTEND Hospitalist
PROC: 0W9G3ZZ Drainage of Peritoneal Cavity, Percutaneous Approach (ICD-10-PCS; principal; 2017-01-13)
DX: C19 Malignant neoplasm of rectosigmoid junction (principal); C78.7 Secondary malignant neoplasm of liver and intrahepatic bile duct; C78.00 Secondary malignant neoplasm of unspecified lung; C79.51 Secondary malignant neoplasm of bone; E87.1 Hypo-osmolality and hyponatremia; R18.0 Malignant ascites; R64 Cachexia; R33.9 Retention of urine, unspecified; R53.1 Weakness; E86.0 Dehydration; R11.0 Nausea; F50.89 Other specified eating disorder; K21.9 Gastro-esophageal reflux disease without esophagitis; G89.3 Neoplasm related pain (acute) (chronic); D72.829 Elevated white blood cell count, unspecified; Z66 Do not resuscitate; Z51.5 Encounter for palliative care; Z68.22 Body mass index [BMI] 22.0-22.9, adult; Z79.891 Long term (current) use of opiate analgesic; Z79.899 Other long term (current) drug therapy